=== PATIENT | female | born 1945 | race Caucasian/White ===

== ENCOUNTER 2016-07-07 22:27 | Emergency (ER) | payer MEDICARE ==
[2016-07-07 23:00] LABS: Hematocrit 46 % (35-47); Mean Corpuscular HGB Conc 33 g/dl (31-36); Mean Corpuscular Hemoglobin 32 pg (27-31); Mean Corpuscular Volume 99 fL (80-97); Mean Platelet Volume 9 um3 (7.4-10.4); Red Blood Count 4.65 10^6/ul (4.0-5.4); Red Cell Distribution Width 17 % (10.5-15)
[2016-07-07 23:12] LABS: ALT 87 U/L (7-52); AST 144 U/L (13-39); Albumin 3.8 g/dL (3.2-5.2); Alkaline Phosphatase 81 U/L (34-104); Anion Gap 8 mmol/L (2-11); BUN/Creatinine Ratio 13.4 (8-20); Blood Urea Nitrogen 9 mg/dL (6-24); CO2 Carbon Dioxide 24 mmol/L (22-32); Calcium 8.6 mg/dL (8.6-10.3); Chloride 105 mmol/L (101-111); EGFR African American 111.9 (>60); Glucose 114 mg/dL (70-100); Potassium 3.6 mmol/L (3.5-5.0); Sodium 137 mmol/L (133-145); Total Protein 6.8 g/dL (6.4-8.9)
[2016-07-07 23:29] LABS: Urine Bacteria Absent (Absent); Urine Bilirubin Negative (Negative); Urine Glucose Negative (Negative); Urine Nitrite Negative (Negative)
[2016-07-07 23:36] LABS: Acetaminophen < 15 mcg/mL; Alcohol 393 mg/dL (<10); Salicylate < 2.50 mg/dL (<30)
[2016-07-07 23:40] LABS: Benzodiazepine Urine Screen None Detected (None Detect)
[2016-07-07 23:45] LABS: TSH (Thyroid Stimulating Horm) 5.68 mcIU/mL (0.34-5.60)
[2016-07-07] MEDS ORDERED: LORazepam INJ* 2 MG/ML 1 ML VIAL IV ONE (23:47)
[2016-07-07] MEDS ORDERED: LORazepam INJ* 2 MG/ML 1 ML VIAL ONE (23:49)
--- NOTE | 2016-07-08 00:45 | ED ---
I, Zoran Valentino, scribed for Christian Limon MD on 07/07/16 at 2236 . Substance Abuse/Use - HPI Summary HPI Summary: Pt is a 71 y/o female BIBA as a 914 that presents to the ED c/o SI and EtOH intoxication. Pt repeatedly stated "I don't wanna be here! I can't hardly stand it." and that her sent her here. Pt also stated "My calls me a drunk, which I do drink too much. I am a hot mess. I can't stand it. I need help. I can't stand it." Per nursing note, pt states her hates her, shouting "all I want to do is , my calls me a drunk for a few years and it pisses me off, I am here because I want to ". [facility] and parking lot supervisor stated pt's called 911 after pt made suicidal statements at home. Pt labile, tearful and states she has been drinking alcohol this night and every night, 1/2 liter vodka on this particular evening. Hx: alcohol abuse, depression, HTN. - History Of Current Complaint Stated Complaint: 941 Time Seen by Provider: 07/07/16 22:30 Hx Obtained From: Patient ?: No Onset/Duration of Drug/ETOH Abuse: Hours Ingestion History: Type/Name Of Drug - alcohol, Amount Ingested - 1/2 L of liquor Timing Of Abuse: Daily Severity Initially: Moderate Severity Currently: Moderate Character: Depressed Aggravating Factor(s): Other - alcohol Alleviating Factor(s): Nothing Associated Signs And Symptoms: Intentional Ingestion Related Hx: Drug/Alcohol Last Used @ - tonight, Suicidal: Thoughts - Allergies/Home Medications Allergies/Adverse Reactions: Allergies Allergy/AdvReac Type Severity Reaction Status Date / Time No Known Allergies Allergy Verified 09/14/15 10:53 PMH/Surg Hx/FS Hx/Imm Hx Endocrine/Hematology History: Denies: Hx Anticoagulant Therapy, Hx Diabetes, Hx Thyroid Disease Cardiovascular History: Reports: Hx Hypertension Denies: Hx Pacemaker/ICD Respiratory History: Denies: Hx Asthma, Hx Chronic Obstructive Pulmonary Disease (COPD) History: Denies: Hx Renal Disease Neurological History: Denies: Hx Dementia, Hx Seizures Psychiatric History: Reports: Hx Depression - reports she feels depressed, Hx Substance Abuse - alcohol abuse last 4-5 years Denies: Hx Eating Disorder Infectious Disease History: Denies: Hx Hepatitis, Hx Human Immunodeficiency Virus (HIV) - Family History Known Family History: Positive: Other - Alcoholism - Social History Alcohol Use: Daily Alcohol Amount: 1/2 bottle of vodka/day Hx Substance Use: No Substance Use Type: Reports: None Hx Tobacco Use: No Smoking Status (MU): Never Smoked Tobacco Review of Systems Constitutional: Negative Eyes: Negative ENT: Negative Cardiovascular: Negative Respiratory: Negative Gastrointestinal: Negative Genitourinary: Negative Musculoskeletal: Negative Skin: Negative Neurological: Negative Psychological: Other - alcohol intoxication Positive: Depressed - w/ SI All Other Systems Reviewed And Are Negative: Yes Physical Exam Triage Information Reviewed: Yes Vital Signs On Initial Exam: Initial Vitals Temp Pulse Resp BP Pulse Ox 98.7 F 71 17 155/95 93 07/07/16 22:30 07/07/16 22:30 07/07/16 22:30 07/07/16 22:30 07/07/16 22:30 Vital Signs Reviewed: Yes Appearance: Positive: Well-Appearing, No Pain Distress Skin: Positive: Warm, Skin Color Reflects Adequate Perfusion, Dry Head/Face: Positive: Normal Head/Face Inspection Eyes: Positive: Normal ENT: Positive: Normal ENT inspection Neck: Positive: Supple, Nontender Respiratory/Lung Sounds: Positive: Clear to Auscultation, Breath Sounds Present Cardiovascular: Positive: RRR Abdomen Description: Positive: Nontender, Soft Bowel Sounds: Positive: Present Musculoskeletal: Positive: Normal Neurological: Positive: Normal Psychiatric: Positive: Depressed - w/ SI, Other - EtOH intoxication Diagnostics - Vital Signs Vital Signs Temp Pulse Resp BP Pulse Ox 07/07/16 23:52 24 07/07/16 22:30 98.7 F 71 17 155/95 93 - Laboratory Lab Results: Lab Results 07/07/16 07/07/16 07/07/16 Range/Units 22:50 22:50 23:08 WBC 7.0 (3.5-10.8) 10^3/ul RBC 4.65 (4.0-5.4) 10^6/ul Hgb 15.0 (12.0-16.0) g/dl Hct 46 (35-47) % MCV 99 H (80-97) fL MCH 32 H (27-31) pg MCHC 33 (31-36) g/dl RDW 17 H (10.5-15) % Plt Count 111 L (150-450) 10^3/ul MPV 9 (7.4-10.4) um3 Neut % (Auto) 33.4 L (38-83) % Lymph % (Auto) 48.0 H (25-47) % [place] % (Auto) 14.4 H (1-9) % Eos % (Auto) 3.1 (0-6) % Baso % (Auto) 1.1 (0-2) % Absolute Neuts (auto) 2.4 (1.5-7.7) 10^3/ul Absolute Lymphs (auto) 3.4 (1.0-4.8) 10^3/ul Absolute Monos (auto) 1.0 H (0-0.8) 10^3/ul Absolute Eos (auto) 0.2 (0-0.6) 10^3/ul Absolute Basos (auto) 0.1 (0-0.2) 10^3/ul Absolute Nucleated RBC 0.01 10^3/ul Nucleated RBC % 0.1 Sodium 137 (133-145) mmol/L Potassium 3.6 (3.5-5.0) mmol/L Chloride 105 (101-111) mmol/L Carbon Dioxide 24 (22-32) mmol/L Anion Gap 8 (2-11) mmol/L BUN 9 (6-24) mg/dL Creatinine 0.67 (0.51-0.95) mg/dL Est GFR ( Amer) 111.9 (>60) Est GFR (Non-Af Amer) 87.0 (>60) BUN/Creatinine Ratio 13.4 (8-20) Glucose 114 H (70-100) mg/dL Calcium 8.6 (8.6-10.3) mg/dL Total Bilirubin 0.50 (0.2-1.0) mg/dL AST 144 H (13-39) U/L ALT 87 H (7-52) U/L Alkaline Phosphatase 81 (34-104) U/L Total Protein 6.8 (6.4-8.9) g/dL Albumin 3.8 (3.2-5.2) g/dL Globulin 3.0 (2-4) g/dL Albumin/Globulin Ratio 1.3 (1-3) TSH 5.68 H (0.34-5.60) mcIU/mL Urine Color Straw Urine Appearance Clear Urine pH 6.0 (5-9) Ur Specific [place] 1.002 L (1.010-1.030) Urine Protein Negative (Negative) Urine Ketones Negative (Negative) Urine Blood 1+ H (Negative) Urine Nitrate Negative (Negative) Urine Bilirubin Negative (Negative) Urine Urobilinogen Negative (Negative) Ur Leukocyte Esterase Trace H (Negative) Urine WBC (Auto) Trace(0-5/hpf) (Absent) Urine RBC (Auto) Trace(0-2/hpf) (Absent) Urine Bacteria Absent (Absent) Urine Glucose Negative (Negative) Salicylates < 2.50 (<30) mg/dL Urine Opiates Screen (None Detect) Acetaminophen < 15 mcg/mL Ur Barbiturates Screen (None Detect) Ur Phencyclidine Scrn (None Detect) Ur Amphetamines Screen (None Detect) U Benzodiazepines Scrn (None Detect) Urine Cocaine Screen (None Detect) U Cannabinoids Screen (None Detect) Serum Alcohol 393 H (<10) mg/dL 07/07/16 Range/Units 23:08 WBC (3.5-10.8) 10^3/ul RBC (4.0-5.4) 10^6/ul Hgb (12.0-16.0) g/dl Hct (35-47) % MCV (80-97) fL MCH (27-31) pg MCHC (31-36) g/dl RDW (10.5-15) % Plt Count (150-450) 10^3/ul MPV (7.4-10.4) um3 Neut % (Auto) (38-83) % Lymph % (Auto) (25-47) % [place] % (Auto) (1-9) % Eos % (Auto) (0-6) % Baso % (Auto) (0-2) % Absolute Neuts (auto) (1.5-7.7) 10^3/ul Absolute Lymphs (auto) (1.0-4.8) 10^3/ul Absolute Monos (auto) (0-0.8) 10^3/ul Absolute Eos (auto) (0-0.6) 10^3/ul Absolute Basos (auto) (0-0.2) 10^3/ul Absolute Nucleated RBC 10^3/ul Nucleated RBC % Sodium (133-145) mmol/L Potassium (3.5-5.0) mmol/L Chloride (101-111) mmol/L Carbon Dioxide (22-32) mmol/L Anion Gap (2-11) mmol/L BUN (6-24) mg/dL Creatinine (0.51-0.95) mg/dL Est GFR ( Amer) (>60) Est GFR (Non-Af Amer) (>60) BUN/Creatinine Ratio (8-20) Glucose (70-100) mg/dL Calcium (8.6-10.3) mg/dL Total Bilirubin (0.2-1.0) mg/dL AST (13-39) U/L ALT (7-52) U/L Alkaline Phosphatase (34-104) U/L Total Protein (6.4-8.9) g/dL Albumin (3.2-5.2) g/dL Globulin (2-4) g/dL Albumin/Globulin Ratio (1-3) TSH (0.34-5.60) mcIU/mL Urine Color Urine Appearance Urine pH (5-9) Ur Specific [place] (1.010-1.030) Urine Protein (Negative) Urine Ketones (Negative) Urine Blood (Negative) Urine Nitrate (Negative) Urine Bilirubin (Negative) Urine Urobilinogen (Negative) Ur Leukocyte Esterase (Negative) Urine WBC (Auto) (Absent) Urine RBC (Auto) (Absent) Urine Bacteria (Absent) Urine Glucose (Negative) Salicylates (<30) mg/dL Urine Opiates Screen None detected (None Detect) Acetaminophen mcg/mL Ur Barbiturates Screen None detected (None Detect) Ur Phencyclidine Scrn None detected (None Detect) Ur Amphetamines Screen None detected (None Detect) U Benzodiazepines Scrn None detected (None Detect) Urine Cocaine Screen None detected (None Detect) U Cannabinoids Screen None detected (None Detect) Serum Alcohol (<10) mg/dL Result Diagrams: 07/07/16 22:50 07/07/16 22:50 Lab Statement: Any lab studies that have been ordered have been reviewed, and results considered in the medical decision making process. Course/Dx - Course Course Of Treatment: Sonia Gonzalez presented 941 and intoxicated. She is convalescing now and will have a MHE when sober. - Diagnoses Provider Diagnoses: Alcohol intoxication, Depression - Physician Notifications Discussed Care Of Patient With: Dr. Vela Time Discussed With Above Provider: 01:00 - change of shift Discharge - Discharge Plan Condition: Stable Disposition: HOME The documentation as recorded by the Chicho cardenas Karl accurately reflects the service I personally performed and the decisions made by me, Christian Limon MD.
--- NOTE | 2016-07-08 07:10 | ED ---
Progress - Results/Orders Results/Orders: STABLE IN ED. MHE PENDING AT SHIFT CHANGE. Course/Dx - Course Course Of Treatment: Sonia Gonzalez presented 941 and intoxicated. She is convalescing now and will have a MHE when sober. - Diagnoses Provider Diagnoses: Alcohol intoxication, Depression - Provider Notifications Discussed Care Of Patient With: Dr. Vela Time Discussed With Above Provider: 01:00 - change of shift
[2016-07-08] MEDS ORDERED: LORazepam TAB(*) 1 MG PO ONE ×3 (12:26→15:47)
--- NOTE | 2016-07-08 14:16 | ED ---
Audelia White Matthew, scribed for Julio Cesar Connelly MD on 07/08/16 at 1402 . Progress - Progress Note Progress Note: The patient is a sign out from Dr. Vela The patient is here for alcohol intoxication and depression. She is pending her MHE. She is c/o of shakiness and has a Hx of withdraw. The patient is in stable condition and will be sign out to Dr. Smith pending MHE. - Results/Orders Results/Orders: STABLE IN ED. MHE PENDING AT SHIFT CHANGE. Course/Dx - Course Course Of Treatment: Sonia Gonzalez presented 941 and intoxicated. She is convalescing now and will have a MHE when sober. - Diagnoses Provider Diagnoses: Alcohol intoxication, Depression - Provider Notifications Discussed Care Of Patient With: Dr. Vela Time Discussed With Above Provider: 01:00 - change of shift The documentation as recorded by the allisonibAudelia avila Matthew accurately reflects the service I personally performed and the decisions made by me, Julio Cesar Connelly MD.
[2016-07-08] MEDS ORDERED: Metoprolol Tartrate TAB* 25 MG PO ONE (15:47)
[2016-07-08] MEDS ORDERED: Hydrochlorothiazide TAB* 25 MG PO SCH (16:00)
[2016-07-08] MEDS ORDERED: Lisinopril TAB* 10 MG PO SCH (16:00)
[2016-07-08 19:07] VITALS: BP 172/76
== END 2016-07-08 18:50 | disposition home or self-care (01) ==
LOC: ED 22:27
DX: F10.129 Alcohol abuse with intoxication, unspecified (principal); F32.9 Major depressive disorder, single episode, unspecified
CPT/HCPCS: 36415; 80053; 80307; 80320; 80329; 81003; 81015; 84443; 85025; 87086; 96374; 99285; A9270-GY; G0480; J2060

== ENCOUNTER 2016-09-05 10:28 | Emergency (ER) | payer MEDICARE ==
[2016-09-05 12:16] LABS: Hematocrit 45 % (35-47); Mean Corpuscular HGB Conc 33 g/dl (31-36); Mean Corpuscular Hemoglobin 31 pg (27-31); Mean Corpuscular Volume 95 fL (80-97); Mean Platelet Volume 10 um3 (7.4-10.4); Red Blood Count 4.78 10^6/ul (4.0-5.4); Red Cell Distribution Width 14 % (10.5-15); White Blood Count 8.1 10^3/ul (3.5-10.8)
[2016-09-05 12:48] LABS: TSH (Thyroid Stimulating Horm) 2.55 mcIU/mL (0.34-5.60)
[2016-09-05 13:00] LABS: Urine Bacteria 1+ (Absent); Urine Bilirubin Negative (Negative); Urine Glucose Negative (Negative); Urine Nitrite Negative (Negative)
[2016-09-05 13:37] LABS: ALT 15 U/L (7-52); AST 28 U/L (13-39); Albumin 4.1 g/dL (3.2-5.2); Alkaline Phosphatase 62 U/L (34-104); Anion Gap 11 mmol/L (2-11); BUN/Creatinine Ratio 14.6 (8-20); Blood Urea Nitrogen 12 mg/dL (6-24); CO2 Carbon Dioxide 26 mmol/L (22-32); Calcium 9.3 mg/dL (8.6-10.3); Chloride 109 mmol/L (101-111); EGFR African American 88.6 (>60); EGFR Non-African American 68.9 (>60); Globulin 3.4 g/dL (2-4); Glucose 105 mg/dL (70-100); Sodium 146 mmol/L (133-145); Total Protein 7.5 g/dL (6.4-8.9)
[2016-09-05 13:38] LABS: Acetaminophen < 15 mcg/mL; Alcohol 265 mg/dL (<10); Salicylate < 2.50 mg/dL (<30)
[2016-09-05 13:40] LABS: Benzodiazepine Urine Screen None Detected (None Detect)
--- NOTE | 2016-09-05 19:56 | ED ---
Audelia White Matthew, scribed for Feliz Blanco MD on 09/05/16 at 1140 . Altered Mental Status - HPI Summary HPI Summary: A 71 y/o female presents to the ED for ETOH and depression. She states that shes an alcoholic and was sober for 3 months before becoming stress by her sons behavior. Because of the stress, she has begun to drink again. Today, the patient states that she verbally fought with her and then began to break objects in distress. The patients called the police who brought her to the hospital. She states that she hates herself and her . She denies any SI. - History Of Current Complaint Chief Complaint: EDSubstanceAbuse Stated Complaint: EOTH 941 Time Seen by Provider: 09/05/16 11:25 Hx Obtained From: Patient Onset/Duration: Still Present Timing: Constant Severity Initially: Mild Severity Currently: Mild Associated Signs And Symptoms: Positive: Negative - Allergies/Home Medications Allergies/Adverse Reactions: Allergies Allergy/AdvReac Type Severity Reaction Status Date / Time No Known Allergies Allergy Verified 09/05/16 10:30 PMH/Surg Hx/FS Hx/Imm Hx Endocrine/Hematology History: Denies: Hx Anticoagulant Therapy, Hx Diabetes, Hx Thyroid Disease Cardiovascular History: Reports: Hx Hypertension Denies: Hx Pacemaker/ICD Respiratory History: Denies: Hx Asthma, Hx Chronic Obstructive Pulmonary Disease (COPD) History: Denies: Hx Renal Disease Neurological History: Denies: Hx Dementia, Hx Seizures Psychiatric History: Reports: Hx Depression - reports she feels depressed, Hx Substance Abuse - alcohol abuse last 4-5 years Denies: Hx Eating Disorder, Hx of Violent Episodes Against Others Infectious Disease History: No Infectious Disease History: Denies: Hx Hepatitis, Hx Human Immunodeficiency Virus (HIV), Traveled Outside the [place] in Last 30 Days - Family History Known Family History: Positive: Other - Alcoholism - Social History Alcohol Use: Daily Alcohol Amount: 1/2 bottle of vodka/day Hx Substance Use: No Substance Use Type: Reports: None Hx Tobacco Use: No Smoking Status (MU): Never Smoked Tobacco Review of Systems Constitutional: Negative Eyes: Negative ENT: Negative Cardiovascular: Negative Respiratory: Negative Gastrointestinal: Negative Genitourinary: Negative Musculoskeletal: Negative Skin: Negative Neurological: Negative Psychological: Other - ETOH, Depressoin All Other Systems Reviewed And Are Negative: Yes Physical Exam - Summary Physical Exam Summary: VITAL SIGNS: Reviewed. GENERAL: Patient is a well developed and nourished female who is lying comfortable in the stretcher. Patient is not in any acute respiratory distress. HEAD AND FACE: No signs of trauma. No ecchymosis, hematomas or skull depressions. No sinus tenderness. EYES: PERRLA, EOMI x 2, No injected conjunctiva, no nystagmus. EARS: Hearing grossly intact. Ear canals and tympanic membranes are within normal limits. MOUTH: Oropharynx within normal limits. NECK: Supple, trachea is midline, no adenopathy, no JVD, no carotid bruit, no c- spine tenderness, neck with full ROM. CHEST: Symmetric, no tenderness at palpation LUNGS: Clear to auscultation bilaterally. No wheezing or crackles. CVS: Regular rate and rhythm, S1 and S2 present, no murmurs or gallops appreciated. ABDOMEN: Soft, non-tender. No signs of distention. No rebound no guarding, and no masses palpated. Bowel sounds are normal. EXTREMITIES: FROM in all major joints, no edema, no cyanosis or clubbing. NEURO: Alert and oriented x 3. No acute neurological deficits. Speech is normal and follows commands. SKIN: Dry and warm Triage Information Reviewed: Yes Vital Signs On Initial Exam: Initial Vitals Temp Pulse Resp BP Pulse Ox 96.2 F 71 18 149/93 100 09/05/16 10:30 09/05/16 10:30 09/05/16 10:30 09/05/16 10:30 09/05/16 10:30 Vital Signs Reviewed: Yes Diagnostics - Vital Signs Vital Signs Temp Pulse Resp BP Pulse Ox 09/05/16 10:30 96.2 F 71 18 149/93 100 - Laboratory Result Diagrams: 09/05/16 11:59 09/05/16 11:59 Lab Statement: Any lab studies that have been ordered have been reviewed, and results considered in the medical decision making process. Altered Mental Statu Course/Dx - Course Assessment/Plan: A 71 y/o female presents to the ED for ETOH and depression. She states that shes an alcoholic and was sober for 3 months before becoming stress by her sons behavior. Because of the stress, she has begun to drink again. Today, the patient states that she verbally fought with her and then began to break objects in distress. The patients called the police who brought her to the hospital. She states that she hates herself and her . She denies any SI. All blood work WNL. except for increased alcohol level. He is medically cleared. He is awaiting for a MHE. Patient is hemodynamically stable and A+O x 3. Dr. Leroy (Psychiatry) evaluated the patient and he recommended to discharge the patient home with f/u of AA. Patient is A+O x 3, she is homdyanmically stable and she is sober. She eating and drinking and she has an steady gate. I discussed all the findings and test results with the patient. Patient was instructed to return to the emergency room immediately if any of the symptoms return or worsens. Plan of care was discussed with the patient and understands and agrees. All questions were answered at patient satisfaction. There were no further complaints or concerns. Lung exam before discharge: CTA B/L. Good air exchange. No wheezing or crackles heard. CVS: S1 and S2 present. No murmurs appreciated. Patient is alert and oriented x 3. Patient is hemodynamically stable. Patient will be discharged home with follow up seeing eye dog trainer in the next 2-3 days - Diagnoses Differential Diagnosis/HQI/PQRI: Other - Alcohol intoxication, Substance abuse Discharge Diagnoses: Alcohol intoxication, Alcohol-induced mood disorder Discharge - Discharge Plan Condition: Stable Disposition: HOME Patient Education Materials: Alcohol Intoxication (ED) Referrals: ALCOHOLICS ANONYMOUS [Outside] - If Needed [facility] [Outside] - If Needed Josh Jameson MD [Primary Care Provider] - The documentation as recorded by the Audelia cardenas Matthew accurately reflects the service I personally performed and the decisions made by me, Feliz Blanco MD.
[2016-09-05 19:57] VITALS: BP 136/84
== END 2016-09-05 20:03 | disposition home or self-care (01) ==
LOC: ED 10:28
DX: F10.94 Alcohol use, unspecified with alcohol-induced mood disorder (principal); F10.129 Alcohol abuse with intoxication, unspecified; Y90.8 Blood alcohol level of 240 mg/100 ml or more
CPT/HCPCS: 36415; 80053; 80307; 80320; 80329; 81003; 81015; 84443; 85025; 87086; 99283; G0480

== ENCOUNTER 2016-09-12 09:25 | Emergency (ER) | payer MEDICARE ==
[2016-09-12] MEDS ORDERED: NS 0.9% 1000 ML* 1,000 ML IV ONE (09:30)
[2016-09-12 10:38] LABS: Hematocrit 46 % (35-47); Hemoglobin 15.4 g/dl (12.0-16.0); Mean Corpuscular HGB Conc 34 g/dl (31-36); Mean Corpuscular Hemoglobin 32 pg (27-31); Mean Corpuscular Volume 94 fL (80-97); Mean Platelet Volume 9 um3 (7.4-10.4); Red Blood Count 4.89 10^6/ul (4.0-5.4); Red Cell Distribution Width 14 % (10.5-15); White Blood Count 6.9 10^3/ul (3.5-10.8)
[2016-09-12 10:40] LABS: Urine Bilirubin Negative (Negative); Urine Glucose Negative (Negative); Urine Nitrite Negative (Negative)
[2016-09-12] MEDS ORDERED: Haloperidol INJ IV/IM* 5 MG/ML AMP IV SLOW PU ONE (10:47)
[2016-09-12] MEDS ORDERED: diPHENhydraMINE IV* 50 MG/ML 1 ml VIAL (BENADRYL) IV ONE (10:48)
[2016-09-12] MEDS ORDERED: LORazepam INJ* 2 MG/ML 1 ML VIAL IV PUSH ONE (10:48)
[2016-09-12 10:52] LABS: ALT 18 U/L (7-52); AST 31 U/L (13-39); Albumin 4.1 g/dL (3.2-5.2); Alkaline Phosphatase 60 U/L (34-104); Anion Gap 8 mmol/L (2-11); BUN/Creatinine Ratio 14.7 (8-20); Blood Urea Nitrogen 10 mg/dL (6-24); CO2 Carbon Dioxide 29 mmol/L (22-32); Calcium 9.1 mg/dL (8.6-10.3); Chloride 106 mmol/L (101-111); EGFR Non-African American 85.5 (>60); Globulin 3.2 g/dL (2-4); Glucose 105 mg/dL (70-100); Potassium 3.5 mmol/L (3.5-5.0); Sodium 143 mmol/L (133-145); Total Protein 7.3 g/dL (6.4-8.9)
[2016-09-12 10:56] LABS: Benzodiazepine Urine Screen None Detected (None Detect)
[2016-09-12 11:22] LABS: Acetaminophen < 15 mcg/mL; Alcohol 286 mg/dL (<10); Salicylate < 2.50 mg/dL (<30)
--- NOTE | 2016-09-12 17:33 | ED ---
Preeti White Janilya, scribed for Nayely Lopez MD on 09/12/16 at 1001 . Substance Abuse/Use - HPI Summary HPI Summary: A 71 y/o female was BIBA 941 to [facility] presenting w/ EtOH intoxication. Pt states that she typically drinks half a bottle of vodka. Pt has PMHx of depression. Pt made statements like "nobody cares about me" and "I just want to ". Pt lives with , and she says the relationship is not great. - History Of Current Complaint Stated Complaint: 941 Time Seen by Provider: 09/12/16 09:28 Hx Obtained From: Patient Ingestion History: Type/Name Of Drug - EtOH, Amount Ingested - unknown Overdose Characteristics: Oral Timing Of Abuse: Daily Severity Initially: Moderate Severity Currently: Moderate Character: Depressed Aggravating Factor(s): Nothing Alleviating Factor(s): Nothing - Allergies/Home Medications Allergies/Adverse Reactions: Allergies Allergy/AdvReac Type Severity Reaction Status Date / Time No Known Allergies Allergy Verified 09/05/16 10:30 PMH/Surg Hx/FS Hx/Imm Hx Previously Healthy: Yes Endocrine/Hematology History: Denies: Hx Anticoagulant Therapy, Hx Diabetes, Hx Thyroid Disease Cardiovascular History: Reports: Hx Hypertension Denies: Hx Pacemaker/ICD Respiratory History: Denies: Hx Asthma, Hx Chronic Obstructive Pulmonary Disease (COPD) History: Denies: Hx Renal Disease Neurological History: Denies: Hx Dementia, Hx Seizures Psychiatric History: Reports: Hx Depression - reports she feels depressed, Hx Substance Abuse - alcohol abuse last 4-5 years Denies: Hx Eating Disorder, Hx of Violent Episodes Against Others Infectious Disease History: Denies: Hx Hepatitis, Hx Human Immunodeficiency Virus (HIV) - Family History Known Family History: Positive: Other - Alcoholism - Social History Lives: With Family Alcohol Use: Daily Alcohol Amount: 1/2 bottle of vodka/day Hx Substance Use: No Substance Use Type: Reports: None Hx Tobacco Use: No Smoking Status (MU): Never Smoked Tobacco Review of Systems Negative: Fever Neurological: Other - intoxicated Positive: Depressed All Other Systems Reviewed And Are Negative: Yes Physical Exam Triage Information Reviewed: Yes Vital Signs On Initial Exam: Vital Signs (72 hours) 09/12/16 09:26 Temperature 97.8 F Pulse Rate 72 Respiratory 16 Rate Blood Pressure 168/87 (mmHg) O2 Sat by Pulse 96 Oximetry Vital Signs Reviewed: Yes Appearance: Positive: Well-Appearing, No Pain Distress Skin: Positive: Warm, Skin Color Reflects Adequate Perfusion, Dry Eyes: Positive: EOMI, GRISEL ENT: Positive: Pharynx normal, TMs normal Neck: Positive: Supple, Nontender Respiratory/Lung Sounds: Positive: Clear to Auscultation, Breath Sounds Present. Negative: Rales, Rhonchi, Wheezes Cardiovascular: Positive: RRR. Negative: Murmur, Rub, Other - no gallops Abdomen Description: Positive: Nontender, Soft. Negative: Distended, Guarding, Other: - no rebound Bowel Sounds: Positive: Present Musculoskeletal: Positive: Strength/ROM Intact. Negative: Edema Left, Edema Right Neurological: Positive: Sensory/Motor Intact, Alert, Oriented to Person Place, Time, CN Intact II-III Psychiatric: Positive: Anxious Diagnostics - Vital Signs Vital Signs Temp Pulse Resp BP Pulse Ox 09/12/16 17:00 56 15 155/69 96 09/12/16 16:30 64 14 158/72 99 09/12/16 16:00 59 17 129/60 95 09/12/16 15:30 56 16 132/69 96 09/12/16 15:00 59 17 113/96 98 09/12/16 14:30 61 15 132/63 99 09/12/16 14:00 58 16 112/59 100 09/12/16 13:30 69 18 138/69 98 09/12/16 13:00 63 18 97/57 99 09/12/16 12:30 61 17 94/54 97 09/12/16 12:00 62 18 126/65 94 09/12/16 11:30 66 7 120/69 99 09/12/16 11:23 66 109/52 92 09/12/16 11:14 14 09/12/16 09:26 97.8 F 72 16 168/87 96 - Laboratory Lab Results: Lab Results 09/12/16 09/12/16 09/12/16 Range/Units 10:22 10:22 10:22 WBC 6.9 (3.5-10.8) 10^3/ul RBC 4.89 (4.0-5.4) 10^6/ul Hgb 15.4 (12.0-16.0) g/dl Hct 46 (35-47) % MCV 94 (80-97) fL MCH 32 H (27-31) pg MCHC 34 (31-36) g/dl RDW 14 (10.5-15) % Plt Count 155 (150-450) 10^3/ul MPV 9 (7.4-10.4) um3 Neut % (Auto) 47.7 (38-83) % Lymph % (Auto) 40.0 (25-47) % Gage % (Auto) 7.3 (1-9) % Eos % (Auto) 4.1 (0-6) % Baso % (Auto) 0.9 (0-2) % Absolute Neuts (auto) 3.3 (1.5-7.7) 10^3/ul Absolute Lymphs (auto) 2.8 (1.0-4.8) 10^3/ul Absolute Monos (auto) 0.5 (0-0.8) 10^3/ul Absolute Eos (auto) 0.3 (0-0.6) 10^3/ul Absolute Basos (auto) 0.1 (0-0.2) 10^3/ul Absolute Nucleated RBC 0 10^3/ul Nucleated RBC % 0 Sodium 143 (133-145) mmol/L Potassium 3.5 (3.5-5.0) mmol/L Chloride 106 (101-111) mmol/L Carbon Dioxide 29 (22-32) mmol/L Anion Gap 8 (2-11) mmol/L BUN 10 (6-24) mg/dL Creatinine 0.68 (0.51-0.95) mg/dL Est GFR ( Amer) 110.0 (>60) Est GFR (Non-Af Amer) 85.5 (>60) BUN/Creatinine Ratio 14.7 (8-20) Glucose 105 H (70-100) mg/dL Calcium 9.1 (8.6-10.3) mg/dL Total Bilirubin 0.80 (0.2-1.0) mg/dL AST 31 (13-39) U/L ALT 18 (7-52) U/L Alkaline Phosphatase 60 (34-104) U/L Total Protein 7.3 (6.4-8.9) g/dL Albumin 4.1 (3.2-5.2) g/dL Globulin 3.2 (2-4) g/dL Albumin/Globulin Ratio 1.3 (1-3) TSH 2.60 (0.34-5.60) mcIU/mL Urine Color Straw Urine Appearance Clear Urine pH 6.0 (5-9) Ur Specific [place] 1.004 L (1.010-1.030) Urine Protein Negative (Negative) Urine Ketones Negative (Negative) Urine Blood Negative (Negative) Urine Nitrate Negative (Negative) Urine Bilirubin Negative (Negative) Urine Urobilinogen Negative (Negative) Ur Leukocyte Esterase Negative (Negative) Urine Glucose Negative (Negative) Salicylates < 2.50 (<30) mg/dL Urine Opiates Screen (None Detect) Acetaminophen < 15 mcg/mL Ur Barbiturates Screen (None Detect) Ur Phencyclidine Scrn (None Detect) Ur Amphetamines Screen (None Detect) U Benzodiazepines Scrn (None Detect) Urine Cocaine Screen (None Detect) U Cannabinoids Screen (None Detect) Serum Alcohol 286 H (<10) mg/dL 09/12/16 Range/Units 10:22 WBC (3.5-10.8) 10^3/ul RBC (4.0-5.4) 10^6/ul Hgb (12.0-16.0) g/dl Hct (35-47) % MCV (80-97) fL MCH (27-31) pg MCHC (31-36) g/dl RDW (10.5-15) % Plt Count (150-450) 10^3/ul MPV (7.4-10.4) um3 Neut % (Auto) (38-83) % Lymph % (Auto) (25-47) % Gage % (Auto) (1-9) % Eos % (Auto) (0-6) % Baso % (Auto) (0-2) % Absolute Neuts (auto) (1.5-7.7) 10^3/ul Absolute Lymphs (auto) (1.0-4.8) 10^3/ul Absolute Monos (auto) (0-0.8) 10^3/ul Absolute Eos (auto) (0-0.6) 10^3/ul Absolute Basos (auto) (0-0.2) 10^3/ul Absolute Nucleated RBC 10^3/ul Nucleated RBC % Sodium (133-145) mmol/L Potassium (3.5-5.0) mmol/L Chloride (101-111) mmol/L Carbon Dioxide (22-32) mmol/L Anion Gap (2-11) mmol/L BUN (6-24) mg/dL Creatinine (0.51-0.95) mg/dL Est GFR ( Amer) (>60) Est GFR (Non-Af Amer) (>60) BUN/Creatinine Ratio (8-20) Glucose (70-100) mg/dL Calcium (8.6-10.3) mg/dL Total Bilirubin (0.2-1.0) mg/dL AST (13-39) U/L ALT (7-52) U/L Alkaline Phosphatase (34-104) U/L Total Protein (6.4-8.9) g/dL Albumin (3.2-5.2) g/dL Globulin (2-4) g/dL Albumin/Globulin Ratio (1-3) TSH (0.34-5.60) mcIU/mL Urine Color Urine Appearance Urine pH (5-9) Ur Specific [place] (1.010-1.030) Urine Protein (Negative) Urine Ketones (Negative) Urine Blood (Negative) Urine Nitrate (Negative) Urine Bilirubin (Negative) Urine Urobilinogen (Negative) Ur Leukocyte Esterase (Negative) Urine Glucose (Negative) Salicylates (<30) mg/dL Urine Opiates Screen None detected (None Detect) Acetaminophen mcg/mL Ur Barbiturates Screen None detected (None Detect) Ur Phencyclidine Scrn None detected (None Detect) Ur Amphetamines Screen None detected (None Detect) U Benzodiazepines Scrn None detected (None Detect) Urine Cocaine Screen None detected (None Detect) U Cannabinoids Screen None detected (None Detect) Serum Alcohol (<10) mg/dL Result Diagrams: 09/12/16 10:22 09/12/16 10:22 Lab Statement: Any lab studies that have been ordered have been reviewed, and results considered in the medical decision making process. Course/Dx - Course Course Of Treatment: 71 yo female with history of alcoholism who arrived with alcohol intoxication asking to and saying that no one loved her. Pt ended up getting very agitated requiring medication, she will be medically cleared for evaluation at 730pm. Pt will be signed out to Dr. Acevedo - Diagnoses Provider Diagnoses: Alcoholism Discharge - Discharge Plan Condition: Stable Disposition: OTHER Discharge Disposition Comment: to be determined by Mental health team The documentation as recorded by the Preeti cardenas Janilya accurately reflects the service I personally performed and the decisions made by me, Nayely Lopez MD.
[2016-09-12] MEDS ORDERED: Metoprolol Tartrate TAB* 25 MG PO ONE (20:21)
[2016-09-12] MEDS ORDERED: cloNIDine TAB* 0.1 MG PO ONE (22:45)
[2016-09-13 01:20] VITALS: BP 176/63
== END 2016-09-13 01:19 | disposition home or self-care (01) ==
LOC: ED 09:25
DX: F10.20 Alcohol dependence, uncomplicated (principal); F32.9 Major depressive disorder, single episode, unspecified; Y90.8 Blood alcohol level of 240 mg/100 ml or more
CPT/HCPCS: 36415; 80053; 80307; 80320; 80329; 81003; 84443; 85025; 96374; 96375; 99285; A9270-GY; G0480; J1200; J1630; J2060

== ENCOUNTER 2016-10-15 11:27 | Inpatient (IN) | payer MEDICARE ==
[2016-10-15 11:59] LABS: Hematocrit 43 % (35-47); Hemoglobin 14.5 g/dl (12.0-16.0); Mean Corpuscular HGB Conc 34 g/dl (31-36); Mean Corpuscular Hemoglobin 33 pg (27-31); Mean Corpuscular Volume 97 fL (80-97); Mean Platelet Volume 9 um3 (7.4-10.4); Red Blood Count 4.43 10^6/ul (4.0-5.4); Red Cell Distribution Width 20 % (10.5-15); White Blood Count 8.1 10^3/ul (3.5-10.8)
[2016-10-15 12:13] LABS: ALT 27 U/L (7-52); AST 43 U/L (13-39); Albumin 4.1 g/dL (3.2-5.2); Alkaline Phosphatase 75 U/L (34-104); Anion Gap 14 mmol/L (2-11); BUN/Creatinine Ratio 22.4 (8-20); Blood Urea Nitrogen 15 mg/dL (6-24); CO2 Carbon Dioxide 21 mmol/L (22-32); Chloride 106 mmol/L (101-111); EGFR African American 111.9 (>60); Globulin 3.2 g/dL (2-4); Glucose 107 mg/dL (70-100); Potassium 3.5 mmol/L (3.5-5.0); Sodium 141 mmol/L (133-145); Total Protein 7.3 g/dL (6.4-8.9)
[2016-10-15 12:31] LABS: Acetaminophen < 15 mcg/mL; Salicylate < 2.50 mg/dL (<30)
[2016-10-15 12:44] LABS: Alcohol 448 mg/dL (<10)
[2016-10-15 14:01] LABS: TSH (Thyroid Stimulating Horm) 2.32 mcIU/mL (0.34-5.60)
[2016-10-15] MEDS ORDERED: Ondansetron INJ* 2 MG/ML VIAL IV PRN (16:17)
[2016-10-15 16:50] LABS: Magnesium 1.9 mg/dL (1.9-2.7)
[2016-10-15] MEDS ORDERED: Thiamine IV* 100 MG, Folic Acid IV* 1 MG, Multiple Vitamin IV ADULT* 10 ML in NS 0.9% 1... IV ONE (17:00)
[2016-10-15] MEDS: Enoxaparin(*) 40 MG/0.4 ML SYR SUBCUT SCH (17:32)
[2016-10-15] MEDS: Omeprazole CAP* 20 MG PO SCH (17:32)
--- NOTE | 2016-10-15 19:43 | HP ---
ATTENDING PHYSICIAN ADDENDUM NOW INCLUDED ON THIS REPORT MEDICINE HISTORY AND PHYSICAL: DATE OF ADMISSION: 10/15/16 PROVIDER: Terra Dos Santos NP ATTENDING PHYSICIAN: Dr. Sofía Aleman *(dictated by Terra Dos Santos NP). PRIMARY CARE PROVIDER: Dr. Josh Jameson. CHIEF COMPLAINT: Alcohol intoxication. HISTORY OF PRESENT ILLNESS: Ms. Gonzalez is a 71-year-old female, who was brought in to the emergency department by EMS under 9.41 order. The patient was noted to be intoxicated and was verbalizing suicidal ideation upon arrival. Per the nurse who cared for the patient, the patient reported to her that she "drinks too much" and that she was upset because her decided to go to [place] to visit his brother. The patient then decided to call the police on her for this. When I spoke with the patient, she did not recall any of this and stated that she came in on her own because she is an alcoholic and does admit to being depressed. I did ask the patient multiple times if she had any other concerns or complaints and she continued to state that she was an alcoholic and depressed, but then asked to go home. She denies any recent complaints including chest pain, shortness of breath, abdominal pain, nausea, vomiting, or diarrhea. She states that she has been well recently. She does admit to being upset that her is not here. Otherwise, she seems confused as to why she is actually here and does not seem to retain understanding of the situation. Of note, the patient's blood alcohol level was noted to be 448 upon arrival. PAST MEDICAL HISTORY: She reports a history of hypertension and depression. The patient also endorses history of alcohol abuse. HOME MEDICATIONS: 1. Lorazepam 1 mg t.i.d. p.r.n. 2. Aspirin 81 mg daily. 3. Folic acid 1 mg daily. 4. Potassium chloride 20 mEq daily. 5. Metoprolol tartrate 25 mg b.i.d. 6. Magnesium oxide 400 mg daily. 7. Sertraline 25 mg daily. 8. Omeprazole 20 mg b.i.d. 9. Multivitamin 1 tab daily. ALLERGIES: No known allergies. FAMILY HISTORY: Unable to obtain from the patient. She does state that alcoholism runs in her family in both her parents as well as her siblings and her son. From the records, I see that she also in the past has reported her father who from cancer as well as a brother who had an CO at age 52 and a sister who had CO at age 70, who are both . SOCIAL HISTORY: She is . She lives with her , Alex, who is also her emergency contact and health-care proxy. She has 4 children. She denies tobacco use or illicit drug use. She does state that she drinks daily. She would not quantify the amount, but states that she drinks "quite a few drinks a day." She is not currently working. She is retired. REVIEW OF SYSTEMS: Difficult to obtain secondary to confusion and intoxication. All pertinent positives and negatives that I was able to obtain are included in the HPI. PHYSICAL EXAMINATION GENERAL: Ms. Gonzalez is a 71-year-old female, who is drowsy, but otherwise well appearing, does not appear to be in any acute distress. VITAL SIGNS: Temperature 98.4, respiratory rate 14, pulse rate 72, blood pressure 158/79, and O2 saturation is 97% on room air. HEENT: Head is atraumatic, normocephalic. Face is symmetrical. Pupils are equal, round, and reactive to light. External ears and nose are normal. Oral mucosa appears moist. NECK: Supple. No lymphadenopathy appreciated. RESPIRATORY: Lungs are clear to auscultation. CARDIAC: S1, S2 heart sounds. Regular rate and rhythm. No murmurs, rubs, or gallops. ABDOMEN: Soft, nontender, nondistended. Bowel sounds are present times all 4 quadrants. MUSCULOSKELETAL: No clubbing or cyanosis noted. Patient appears to have full ROM. NEUROLOGIC: The patient moves all extremities. Sensation is intact to light touch. Cranial nerves II through XII appear grossly intact. PSYCH: She is mildly drowsy, oriented to self and place. She is disoriented to time and situation. She is tearful but cooperative and follows commands. SKIN: Limited examination, but appears grossly intact. DIAGNOSTIC STUDIES/LAB DATA: CBC: WBC 8.1, hemoglobin 14.5, hematocrit 43, platelet count 100. CMP: Sodium 141, potassium 3.5, chloride 106, BUN 15, creatinine 0.67, glucose 107, calcium 9.0, magnesium 1.9. Total bilirubin 0.9, AST 43, ALT 27, alk phos 75. Albumin of 4.1. TSH 2.32. Toxicology shows a serum alcohol level of 448. Old medical records were reviewed. ASSESSMENT AND PLAN: Ms. Gonzalez is a 71-year-old female with a past medical history significant for chronic alcohol abuse, hypertension, and depression, who presents today with acute alcohol intoxication and concern for verbalized suicidal ideation. We will admit her on observation to the medicine floor. Plan is as follows: 1. Alcohol intoxication: We will monitor the patient and provide supportive care with IV fluids. The patient will have a repeat alcohol level. I anticipate that she will be medically cleared sometime after midnight for her mental health evaluation. The patient was made aware that this will most likely take place tomorrow, hopefully in the morning. In the meantime, we will give her banana bag and provide care with p.r.n. antiemetics. 2. Suicidal ideation: The patient was brought in under 9.41 and will require mental health evaluation. Mental health unit has been made aware. We will re- draw her serum alcohol level and continue supportive care. In the meantime, she will have a one-to-one sitter. 3. Hypertension: Continue home medications of metoprolol. 4. Depression: Continue home Zoloft. 5. DVT prophylaxis: She is ordered subcu Lovenox. 6. Code status: She is a full code. 7. Disposition: Admit to Medicine for observation status. The patient will receive mental health evaluation with anticipated discharge home once medically cleared by Psych. TIME SPENT: Time spent on this admission was approximately 60 minutes, more than half that time was spent [id number] with the patient obtaining history and physical, performing physical examination, and reviewing the plan of care. Plan of care was also reviewed with my attending, Dr. Aleman, who is in agreement. TERRA DOS SANTOS NP ADDENDUM: Ms. Gonzalez is a 71-year-old female with a history of dyslipidemia and hypertension who presented to the hospital intoxicated, expressing suicidal ideations. The patient's alcohol level was over 400. She is going to be admitted to our service and once she gela up, she is going to be evaluated by psychiatrist. For further details of the patient's presentation and plan, please see history and physical dictated by Terra Dos Santos NP, on 10/15/16 with which I agree. SOFÍA ALEMAN MD CC: Dr. Jameson* [id number]/[facility] #: [id number] [id number]/[facility] #: [id number] CLYDE
[2016-10-15] MEDS: Metoprolol Tartrate TAB* 25 MG PO SCH (20:09)
[2016-10-15] MEDS: LORazepam TAB(*) 1 MG PO PRN (20:55)
--- NOTE | 2016-10-15 21:15 | HP ---
HISTORY AND PHYSICAL:* ADDENDUM: Ms. Gonzalez is a 71-year-old female with a history of dyslipidemia and hypertension who presented to the hospital intoxicated expressing suicidal ideations. The patient's alcohol level was over 400. She is going to be admitted to our service and once she gela up, she is going to be evaluated by psychiatrist. For further details of the patient's presentation and plan, please see history and physical dictated by Ana Ferrell NP, on 10/15/16 with which I agree. [id number]/[facility] #: [id number] [facility]
--- NOTE | 2016-10-15 22:10 | ED ---
Jewel White Aidan, scribed for Christian Limon MD on 10/15/16 at 1526 . Psychiatric Complaint - HPI Summary HPI Summary: 71 y/o female presents to the ED via EMS on . intoxicated and verbalizing suicidal ideation. According to the nurse, the patient claimed to have drank too much and that she was very aggravated at her for going to [place] to visit his brother. As a result, she called the police on her . While in the ED, she asked if she was in the hospital and believed that she came on her own accord. Her SALOMÓN was 0.448. - History Of Current Complaint Chief Complaint: EDMentalHealth Time Seen by Provider: 10/15/16 13:24 Hx Obtained From: Other: - nurse Hx From Patient Unobtainable Due To: Altered Mental Status - Pt was unable to give a full Hx due to her intoxication and confusion Hx Last Menstrual Period: unknown Onset/Duration: Sudden Onset, Lasting Hours, Still Present Timing: Intermittent Episode Lasting Severity Initially: Moderate Severity Currently: Moderate Character: Anxious Aggravating Factor(s): Alcohol Use, Other - left to visit her brother, which seemed to be traumatic for the Pt Alleviating Factor(s): Other - unknown Associated Signs And Symptoms: Positive: Confused Related History: Positive For: Admissions Related To Substance Abuse - Pt has a history of admissions due to alcohol intoxication, according to the nurse Has Suicidal: Reports: Thoughts - verbalized SI Has Homicidal: Denies: Thoughts, With A Plan, Demonstrates Gesture, Has Prior Attempt(s) Recent Stressor(s): Her visited his brother in [place], which aggravated Pt Ingestion History: Type/Name Of Drug - alcohol, Amount Ingested - unknown - Risk Factor(s) Completed Suicide Risk Factors: White Gambian - Allergies/Home Medications Allergies/Adverse Reactions: Allergies Allergy/AdvReac Type Severity Reaction Status Date / Time No Known Allergies Allergy Verified 09/05/16 10:30 Home Medications: Home Medications LORazepam TAB(*) [Ativan 1 MG TAB (*)] 1 mg PO TID PRN 10/15/16 [History Confirmed 10/15/16] Potassium Chloride Microencaps [Klor-Con M20] 20 meq PO DAILY 10/15/16 [History Confirmed 10/15/16] PMH/Surg Hx/FS Hx/Imm Hx Endocrine/Hematology History: Denies: Hx Anticoagulant Therapy, Hx Diabetes, Hx Thyroid Disease Cardiovascular History: Reports: Hx Hypertension Denies: Hx Pacemaker/ICD Respiratory History: Denies: Hx Asthma, Hx Chronic Obstructive Pulmonary Disease (COPD) History: Denies: Hx Renal Disease Neurological History: Denies: Hx Dementia, Hx Seizures Psychiatric History: Reports: Hx Depression - reports she feels depressed, Hx Substance Abuse - alcohol abuse last 4-5 years Denies: Hx Eating Disorder, Hx of Violent Episodes Against Others Infectious Disease History: No Infectious Disease History: Denies: Hx Hepatitis, Hx Human Immunodeficiency Virus (HIV), Traveled Outside the [place] in Last 30 Days - Family History Known Family History: Positive: Other - Alcoholism - Social History Occupation: Retired Lives: With Family Alcohol Use: Daily Alcohol Amount: 1/2 bottle of vodka/day Hx Substance Use: No Substance Use Type: Reports: None Hx Tobacco Use: No Smoking Status (MU): Never Smoked Tobacco Review of Systems Constitutional: Negative Eyes: Negative ENT: Negative Cardiovascular: Negative Respiratory: Negative Gastrointestinal: Negative Genitourinary: Negative Musculoskeletal: Negative Skin: Negative Neurological: Other - alcohol intoxication Psychological: Other - confused Positive: Anxious All Other Systems Reviewed And Are Negative: Yes Physical Exam Triage Information Reviewed: Yes Vital Signs On Initial Exam: Initial Vitals Temp Pulse Resp BP Pulse Ox 98.2 F 81 16 161/75 95 10/15/16 12:00 10/15/16 12:00 10/15/16 12:00 10/15/16 12:00 10/15/16 12:00 Vital Signs Reviewed: Yes Appearance: Positive: Well-Appearing, No Pain Distress Skin: Positive: Warm, Skin Color Reflects Adequate Perfusion, Dry Head/Face: Positive: Normal Head/Face Inspection Eyes: Positive: Normal ENT: Positive: Normal ENT inspection Neck: Positive: Supple, Nontender Respiratory/Lung Sounds: Positive: Clear to Auscultation, Breath Sounds Present Cardiovascular: Positive: RRR Abdomen Description: Positive: Nontender, Soft Musculoskeletal: Positive: Normal Neurological: Positive: Sensory/Motor Intact, CN Intact II-III, Reflexes Intact. Negative: Alert, Oriented to Person Place, Time - intoxicated, she was unaware of the fact that she was in the hospital prior to asking Psychiatric: Positive: Anxious, Other - confused - Prasanth Coma Scale Coma Scale Total: 15 Diagnostics - Vital Signs Vital Signs Temp Pulse Resp BP Pulse Ox 10/15/16 14:36 98.0 F 64 14 133/69 97 10/15/16 12:00 98.2 F 81 16 161/75 95 - Laboratory Lab Results: Lab Results 10/15/16 10/15/16 Range/Units 11:50 11:50 WBC 8.1 (3.5-10.8) 10^3/ul RBC 4.43 (4.0-5.4) 10^6/ul Hgb 14.5 (12.0-16.0) g/dl Hct 43 (35-47) % MCV 97 (80-97) fL MCH 33 H (27-31) pg MCHC 34 (31-36) g/dl RDW 20 H (10.5-15) % Plt Count 100 L (150-450) 10^3/ul MPV 9 (7.4-10.4) um3 Neut % (Auto) 40.2 (38-83) % Lymph % (Auto) 45.3 (25-47) % [place] % (Auto) 9.8 H (1-9) % Eos % (Auto) 3.5 (0-6) % Baso % (Auto) 1.2 (0-2) % Absolute Neuts (auto) 3.3 (1.5-7.7) 10^3/ul Absolute Lymphs (auto) 3.7 (1.0-4.8) 10^3/ul Absolute Monos (auto) 0.8 (0-0.8) 10^3/ul Absolute Eos (auto) 0.3 (0-0.6) 10^3/ul Absolute Basos (auto) 0.1 (0-0.2) 10^3/ul Absolute Nucleated RBC 0.01 10^3/ul Nucleated RBC % 0.1 Sodium 141 (133-145) mmol/L Potassium 3.5 (3.5-5.0) mmol/L Chloride 106 (101-111) mmol/L Carbon Dioxide 21 L (22-32) mmol/L Anion Gap 14 H (2-11) mmol/L BUN 15 (6-24) mg/dL Creatinine 0.67 (0.51-0.95) mg/dL Est GFR ( Amer) 111.9 (>60) Est GFR (Non-Af Amer) 87.0 (>60) BUN/Creatinine Ratio 22.4 H (8-20) Glucose 107 H (70-100) mg/dL Calcium 9.0 (8.6-10.3) mg/dL Total Bilirubin 0.90 (0.2-1.0) mg/dL AST 43 H (13-39) U/L ALT 27 (7-52) U/L Alkaline Phosphatase 75 (34-104) U/L Total Protein 7.3 (6.4-8.9) g/dL Albumin 4.1 (3.2-5.2) g/dL Globulin 3.2 (2-4) g/dL Albumin/Globulin Ratio 1.3 (1-3) TSH 2.32 (0.34-5.60) mcIU/mL Salicylates < 2.50 (<30) mg/dL Acetaminophen < 15 mcg/mL Serum Alcohol 448 H* (<10) mg/dL Result Diagrams: 10/15/16 11:50 10/15/16 11:50 Lab Statement: Any lab studies that have been ordered have been reviewed, and results considered in the medical decision making process. Course/Dx - Course Course Of Treatment: 71 y/o female presents confused and intoxicated with a SALOMÓN of 0.448. She verbalized SI, according to the nurse. This is not her first hospitalization due to alcohol. - Differential Dx/Clinical Impression Provider Diagnosis: Alcohol intoxication, Suicidal ideations Discharge - Discharge Plan Condition: Stable Disposition: ADMITTED TO [facility] documentation as recorded by the Jewel cardenas Aidan accurately reflects the service I personally performed and the decisions made by , Christian Limon MD.
[2016-10-16 00:58] LABS: Urine Bacteria 1+ (Absent); Urine Bilirubin Negative (Negative); Urine Glucose Negative (Negative); Urine Nitrite Negative (Negative)
[2016-10-16 01:04] LABS: Benzodiazepine Urine Screen None Detected (None Detect)
[2016-10-16] MEDS: LORazepam TAB(*) 1 MG PO PRN (04:47)
--- NOTE | 2016-10-16 07:30 | PN ---
Subjective Date of Service: 10/16/16 Interval History: Ms. Gonzalez reports having some reflux this morning. She is tremulous but states that this happens at home, and she usually takes Ativan for this. Denies CP, SOB , abd pain, n/v. She is cooperative and motivated to "do what she needs to go home." 1:[address] Family History: Unchanged from Admission Social History: Unchanged from Admission Past Medical History: Unchanged from Admission Objective Active Medications: Acetaminophen (Tylenol Tab*) 650 mg PO Q4H PRN PRN Reason: FEVER/PAIN Aspirin (Aspirin Low Dose Tab*) 81 mg PO DAILY [facility] Enoxaparin Sodium (Lovenox(*)) 40 mg SUBCUT Q24H [facility] Last Admin: 10/15/16 17:32 Dose: 40 mg Folic Acid (Folvite Tab*) 1 mg PO DAILY [facility] Lorazepam (Ativan Tab(*)) 1 mg PO TID PRN PRN Reason: ANXIETY Last Admin: 10/16/16 04:47 Dose: 1 mg Magnesium Oxide (Magox 400 Tab*) 400 mg PO DAILY [facility] Metoprolol Tartrate (Lopressor Tab*) 25 mg PO BID [facility] Last Admin: 10/15/16 20:09 Dose: 25 mg Multivitamins/Minerals (Theragran/Minerals Tab*) 1 tab PO DAILY [facility] Omeprazole (Prilosec Cap*) 20 mg PO BID AC [facility] Last Admin: 10/15/16 17:32 Dose: 20 mg Ondansetron HCl (Zofran Inj*) 4 mg IV Q6H PRN PRN Reason: NAUSEA Potassium Chloride (Klor Con Er Tab*) 20 meq PO DAILY [facility] Sertraline HCl (Zoloft*) 25 mg PO DAILY [facility] Vital Signs 10/15/16 10/15/16 10/15/16 16:04 19:53 20:55 Temperature 98.4 F 97.9 F Pulse Rate 72 77 Respiratory 14 18 18 Rate Blood Pressure 158/79 144/77 (mmHg) O2 Sat by Pulse 95 94 Oximetry 10/15/16 10/15/16 10/16/16 22:55 23:01 03:28 Temperature 98.4 F 98.1 F Pulse Rate 68 68 Respiratory 18 20 16 Rate Blood Pressure 165/77 171/71 (mmHg) O2 Sat by Pulse 92 95 Oximetry 10/16/16 10/16/16 03:37 04:47 Temperature Pulse Rate 71 Respiratory 18 Rate Blood Pressure 161/69 (mmHg) O2 Sat by Pulse Oximetry Oxygen Devices in Use Now: None Appearance: Tearful female patient, sitting up in bed, mild tremors noted. She is alert, cooperative and responding appropriately. Eyes: PERRLA Ears/Nose/Mouth/Throat: Mucous Membranes Moist Neck: NL Appearance and Movements; NL JVP Respiratory: Symmetrical Chest Expansion and Respiratory Effort, Clear to Auscultation Cardiovascular: NL Sounds; No Murmurs; No JVD, RRR Abdominal: NL Sounds; No Tenderness; No Distention Extremities: No Edema Skin: No Rash or Ulcers Neurological: Alert and Oriented x 3, NL Muscle Strength and Tone Lines/Tubes/Other Access: Clean, Dry and Intact Peripheral IV Nutrition: Taking PO's Result Diagrams: 10/15/16 11:50 10/15/16 11:50 Additional Lab and Data: Lab Results 10/15/16 10/15/16 Range/Units 11:50 11:50 WBC 8.1 (3.5-10.8) 10^3/ul RBC 4.43 (4.0-5.4) 10^6/ul Hgb 14.5 (12.0-16.0) g/dl Hct 43 (35-47) % MCV 97 (80-97) fL MCH 33 H (27-31) pg MCHC 34 (31-36) g/dl RDW 20 H (10.5-15) % Plt Count 100 L (150-450) 10^3/ul MPV 9 (7.4-10.4) um3 Neut % (Auto) 40.2 (38-83) % Lymph % (Auto) 45.3 (25-47) % [place] % (Auto) 9.8 H (1-9) % Eos % (Auto) 3.5 (0-6) % Baso % (Auto) 1.2 (0-2) % Absolute Neuts (auto) 3.3 (1.5-7.7) 10^3/ul Absolute Lymphs (auto) 3.7 (1.0-4.8) 10^3/ul Absolute Monos (auto) 0.8 (0-0.8) 10^3/ul Absolute Eos (auto) 0.3 (0-0.6) 10^3/ul Absolute Basos (auto) 0.1 (0-0.2) 10^3/ul Absolute Nucleated RBC 0.01 10^3/ul Nucleated RBC % 0.1 Sodium 141 (133-145) mmol/L Potassium 3.5 (3.5-5.0) mmol/L Chloride 106 (101-111) mmol/L Carbon Dioxide 21 L (22-32) mmol/L Anion Gap 14 H (2-11) mmol/L BUN 15 (6-24) mg/dL Creatinine 0.67 (0.51-0.95) mg/dL Est GFR ( Amer) 111.9 (>60) Est GFR (Non-Af Amer) 87.0 (>60) BUN/Creatinine Ratio 22.4 H (8-20) Glucose 107 H (70-100) mg/dL Calcium 9.0 (8.6-10.3) mg/dL Total Bilirubin 0.90 (0.2-1.0) mg/dL AST 43 H (13-39) U/L ALT 27 (7-52) U/L Alkaline Phosphatase 75 (34-104) U/L Total Protein 7.3 (6.4-8.9) g/dL Albumin 4.1 (3.2-5.2) g/dL Globulin 3.2 (2-4) g/dL Albumin/Globulin Ratio 1.3 (1-3) TSH 2.32 (0.34-5.60) mcIU/mL Salicylates < 2.50 (<30) mg/dL Acetaminophen < 15 mcg/mL Serum Alcohol 448 H* (<10) mg/dL Assess/Plan/Problems-Billing Assessment: Ms. Gonzalez is a 71 yo female with a PMH significant for depression, HTN, and alcohol abuse who was brought in on a 9.41 on 10/15/16 with concern for suicidal ideation. - Patient Problems (1) Alcohol intoxication Comment: Patient admitted for observation and resolution of blood alcohol level in order to have mental health evaluation. Patient has received [employer] and supportive care. Patient reports longstanding history of alcoholism. Will institute [facility] protocol while awaiting MHE to monitor for active withdrawal. (2) Hypertension Code(s): I10 - ESSENTIAL (PRIMARY) HYPERTENSION Comment: Hypertensive Continue home metoprolol. Will add amlodipine if necessary PRN hydralazine (3) DVT prophylaxis Code(s): [id number] - Comment: SQ Lovenox Status and Disposition: OBV admit. Mental health eval to determine dispo.
[2016-10-16] MEDS: Magnesium Oxide TAB* 400 MG PO SCH (07:49)
[2016-10-16] MEDS: Folic Acid TAB* 1 MG PO SCH (07:49)
[2016-10-16] MEDS: Potassium Chlor TAB* 20 MEQ TAB.ER PO SCH (07:49)
[2016-10-16] MEDS: Aspirin Low Dose CHEW TAB* 81 MG PO SCH (07:49)
[2016-10-16] MEDS: Metoprolol Tartrate TAB* 25 MG PO SCH ×2 (07:49→19:59)
[2016-10-16] MEDS: Multivitamins/Minerals TAB PO SCH (07:49)
[2016-10-16] MEDS: Sertraline* 25 MG TAB PO SCH (07:49)
[2016-10-16] MEDS: Omeprazole CAP* 20 MG PO SCH ×2 (07:50→16:38)
[2016-10-16] MEDS: amLODIPine TAB* 5 MG PO SCH (08:38)
[2016-10-16] MEDS: hydrALAZINE IV* 20 MG/ML VIAL IV SLOW PU PRN ×2 (08:38→19:59)
[2016-10-16] MEDS: Thiamine TAB* 100 MG TAB PO SCH (08:39)
[2016-10-16] MEDS: LORazepam TAB(*) 1 MG PO SCH ×3 (13:10→19:59)
[2016-10-16] MEDS: Acetaminophen TAB* 325 MG PO PRN (13:10)
[2016-10-16] MEDS: Enoxaparin(*) 40 MG/0.4 ML SYR SUBCUT SCH (16:38)
[2016-10-16] MEDS ORDERED: amLODIPine TAB* 5 MG PO ONE (17:12)
[2016-10-16] MEDS: chlordiazePOXIDE CAP* 25 MG PO SCH ×2 (17:34→19:58)
[2016-10-17] MEDS: LORazepam TAB(*) 1 MG PO SCH (04:16)
[2016-10-17] MEDS: hydrALAZINE IV* 20 MG/ML VIAL IV SLOW PU PRN (04:16)
[2016-10-17] MEDS: Omeprazole CAP* 20 MG PO SCH ×2 (07:21→16:00)
[2016-10-17] MEDS: Multivitamins/Minerals TAB PO SCH (07:21)
[2016-10-17] MEDS: Aspirin Low Dose CHEW TAB* 81 MG PO SCH (07:21)
[2016-10-17] MEDS: Thiamine TAB* 100 MG TAB PO SCH (07:22)
[2016-10-17] MEDS: Potassium Chlor TAB* 20 MEQ TAB.ER PO SCH (07:22)
[2016-10-17] MEDS: chlordiazePOXIDE CAP* 25 MG PO SCH ×3 (07:22→19:44)
[2016-10-17] MEDS: Metoprolol Tartrate TAB* 25 MG PO SCH ×2 (07:23→19:44)
[2016-10-17] MEDS: Sertraline* 25 MG TAB PO SCH (07:23)
[2016-10-17] MEDS: Folic Acid TAB* 1 MG PO SCH (07:23)
[2016-10-17] MEDS: Magnesium Oxide TAB* 400 MG PO SCH (07:23)
[2016-10-17] MEDS: amLODIPine TAB* 5 MG PO SCH (07:24)
--- NOTE | 2016-10-17 07:39 | PN ---
Subjective Date of Service: 10/17/16 Interval History: Ms. Gonzalez is up in the recliner, sleeping. She awakens easily to verbal stimuli and is calm and smiling this morning. She reports that "I feel fine" and denies any acute complaints, including chest pain, FINN, palpitations, SOB, abd pain, n/ v. She reports her tremor are better with the Librium and prn lorazepam. 1:1 consumer safety officer in room Family History: Unchanged from Admission Social History: Unchanged from Admission Past Medical History: Unchanged from Admission Objective Active Medications: Acetaminophen (Tylenol Tab*) 650 mg PO Q4H PRN PRN Reason: FEVER/PAIN Last Admin: 10/16/16 13:10 Dose: 650 mg Amlodipine Besylate (Norvasc Tab*) 5 mg PO DAILY [facility] Last Admin: 10/17/16 07:24 Dose: 5 mg Aspirin (Aspirin Low Dose Tab*) 81 mg PO DAILY [facility] Last Admin: 10/17/16 07:21 Dose: 81 mg Chlordiazepoxide (Librium Cap*) 50 mg PO TID [facility] Last Admin: 10/17/16 07:22 Dose: 50 mg Enoxaparin Sodium (Lovenox(*)) 40 mg SUBCUT Q24H [facility] Last Admin: 10/16/16 16:38 Dose: 40 mg Folic Acid (Folvite Tab*) 1 mg PO DAILY [facility] Last Admin: 10/17/16 07:23 Dose: 1 mg Hydralazine HCl (Apresoline Iv*) 5 mg IV SLOW PU Q4H PRN PRN Reason: BLOOD PRESSURE Last Admin: 10/17/16 04:16 Dose: 5 mg Lorazepam (Ativan Tab(*)) 0 mg PO .PER [facility] SCORE [facility] PRN Reason: Protocol Last Admin: 10/17/16 04:16 Dose: 1 mg Magnesium Oxide (Magox 400 Tab*) 400 mg PO DAILY [facility] Last Admin: 10/17/16 07:23 Dose: 400 mg Metoprolol Tartrate (Lopressor Tab*) 25 mg PO BID [facility] Last Admin: 10/17/16 07:23 Dose: 25 mg Multivitamins/Minerals (Theragran/Minerals Tab*) 1 tab PO DAILY [facility] Last Admin: 10/17/16 07:21 Dose: 1 tab Omeprazole (Prilosec Cap*) 20 mg PO BID [facility] Last Admin: 10/17/16 07:21 Dose: 20 mg Ondansetron HCl (Zofran Inj*) 4 mg IV Q6H PRN PRN Reason: NAUSEA Potassium Chloride (Klor Con Er Tab*) 20 meq PO DAILY [facility] Last Admin: 10/17/16 07:22 Dose: 20 meq Sertraline HCl (Zoloft*) 25 mg PO DAILY [facility] Last Admin: 10/17/16 07:23 Dose: 25 mg Thiamine HCl (Vitamin B-1 Tab*) 100 mg PO DAILY [facility] Last Admin: 10/17/16 07:22 Dose: 100 mg Vital Signs 10/16/16 10/16/16 10/16/16 07:59 10:11 12:41 Temperature 98.4 F Pulse Rate 76 71 81 Respiratory 16 16 Rate Blood Pressure 192/90 160/76 180/85 (mmHg) O2 Sat by Pulse 98 Oximetry 10/16/16 10/16/16 10/16/16 13:10 15:10 15:14 Temperature 98.2 F Pulse Rate 84 Respiratory 16 16 18 Rate Blood Pressure 174/81 (mmHg) O2 Sat by Pulse 97 Oximetry 10/16/16 10/16/16 10/16/16 16:37 17:34 18:37 Temperature Pulse Rate Respiratory 18 18 19 Rate Blood Pressure (mmHg) O2 Sat by Pulse Oximetry 10/16/16 10/16/16 10/16/16 19:27 19:34 19:58 Temperature 98.9 F Pulse Rate 84 Respiratory 18 18 19 Rate Blood Pressure 183/71 (mmHg) O2 Sat by Pulse 98 Oximetry 10/16/16 10/16/16 10/16/16 19:59 21:58 21:59 Temperature Pulse Rate Respiratory 19 18 18 Rate Blood Pressure (mmHg) O2 Sat by Pulse Oximetry 10/16/16 10/17/16 10/17/16 23:07 04:02 04:16 Temperature 98.1 F Pulse Rate 75 Respiratory 16 16 Rate Blood Pressure 169/76 181/80 (mmHg) O2 Sat by Pulse 97 Oximetry 10/17/16 10/17/16 10/17/16 04:55 06:16 06:36 Temperature Pulse Rate Respiratory 18 16 Rate Blood Pressure 177/83 (mmHg) O2 Sat by Pulse Oximetry 10/17/16 07:22 Temperature Pulse Rate Respiratory 18 Rate Blood Pressure (mmHg) O2 Sat by Pulse Oximetry Oxygen Devices in Use Now: None Appearance: Well appearing female, OOB to chair, NAD Eyes: PERRLA Ears/Nose/Mouth/Throat: Mucous Membranes Moist Respiratory: Symmetrical Chest Expansion and Respiratory Effort, Clear to Auscultation Cardiovascular: NL Sounds; No Murmurs; No JVD, RRR Abdominal: NL Sounds; No Tenderness; No Distention Extremities: No Edema Skin: No Rash or Ulcers Neurological: Alert and Oriented x 3 Lines/Tubes/Other Access: Clean, Dry and Intact Peripheral IV Nutrition: Taking PO's Result Diagrams: 10/15/16 11:50 10/15/16 11:50 Additional Lab and Data: Lab Results 10/15/16 10/15/16 Range/Units 11:50 11:50 WBC 8.1 (3.5-10.8) 10^3/ul RBC 4.43 (4.0-5.4) 10^6/ul Hgb 14.5 (12.0-16.0) g/dl Hct 43 (35-47) % MCV 97 (80-97) fL MCH 33 H (27-31) pg MCHC 34 (31-36) g/dl RDW 20 H (10.5-15) % Plt Count 100 L (150-450) 10^3/ul MPV 9 (7.4-10.4) um3 Neut % (Auto) 40.2 (38-83) % Lymph % (Auto) 45.3 (25-47) % [place] % (Auto) 9.8 H (1-9) % Eos % (Auto) 3.5 (0-6) % Baso % (Auto) 1.2 (0-2) % Absolute Neuts (auto) 3.3 (1.5-7.7) 10^3/ul Absolute Lymphs (auto) 3.7 (1.0-4.8) 10^3/ul Absolute Monos (auto) 0.8 (0-0.8) 10^3/ul Absolute Eos (auto) 0.3 (0-0.6) 10^3/ul Absolute Basos (auto) 0.1 (0-0.2) 10^3/ul Absolute Nucleated RBC 0.01 10^3/ul Nucleated RBC % 0.1 Sodium 141 (133-145) mmol/L Potassium 3.5 (3.5-5.0) mmol/L Chloride 106 (101-111) mmol/L Carbon Dioxide 21 L (22-32) mmol/L Anion Gap 14 H (2-11) mmol/L BUN 15 (6-24) mg/dL Creatinine 0.67 (0.51-0.95) mg/dL Est GFR ( Amer) 111.9 (>60) Est GFR (Non-Af Amer) 87.0 (>60) BUN/Creatinine Ratio 22.4 H (8-20) Glucose 107 H (70-100) mg/dL Calcium 9.0 (8.6-10.3) mg/dL Total Bilirubin 0.90 (0.2-1.0) mg/dL AST 43 H (13-39) U/L ALT 27 (7-52) U/L Alkaline Phosphatase 75 (34-104) U/L Total Protein 7.3 (6.4-8.9) g/dL Albumin 4.1 (3.2-5.2) g/dL Globulin 3.2 (2-4) g/dL Albumin/Globulin Ratio 1.3 (1-3) TSH 2.32 (0.34-5.60) mcIU/mL Salicylates < 2.50 (<30) mg/dL Acetaminophen < 15 mcg/mL Serum Alcohol 448 H* (<10) mg/dL Assess/Plan/Problems-Billing Assessment: Ms. Gonzalez is a 71 yo female with a PMH significant for depression, HTN, and alcohol abuse who was brought in on a 9.41 on 10/15/16 with concern for suicidal ideation. - Patient Problems (1) Alcoholism Code(s): F10.20 - ALCOHOL DEPENDENCE, UNCOMPLICATED Comment: Initially admitted under observation for resolution of blood alcohol level and subsequent MHE. Patient admits to heavy drinking for many years. On [facility] protocol, scoring 3-5 overnight Continue scheduled Librium (2) Suicidal ideation Code(s): R45.851 - SUICIDAL IDEATIONS Comment: Patient seen by mental health residential treatment counselor yesterday; plan for admission to [facility] under 9.39 Per notes, patient's concerned for drinking and short term memory loss He wants patient to be treated in [facility] and then be transferred to inpatient rehab , which patient is currently refusing. (3) Hypertension Code(s): I10 - ESSENTIAL (PRIMARY) HYPERTENSION Comment: Hypertensive, likely exacerbated secondary to withdrawl Continue home metoprolol. Continue amlodipine (added this admission). PRN hydralazine (4) DVT prophylaxis Code(s): [id number] - Comment: SQ Lovenox Status and Disposition: OBV admit. Plan for discharge to [facility] under 9.39. Patient is medically stable for transfer to [facility].
[2016-10-17] MEDS: Enoxaparin(*) 40 MG/0.4 ML SYR SUBCUT SCH (16:00)
[2016-10-18] MEDS: Sertraline* 25 MG TAB PO SCH (07:32)
[2016-10-18] MEDS: Potassium Chlor TAB* 20 MEQ TAB.ER PO SCH (07:32)
[2016-10-18] MEDS: Metoprolol Tartrate TAB* 25 MG PO SCH (07:33)
[2016-10-18] MEDS: Multivitamins/Minerals TAB PO SCH (07:33)
[2016-10-18] MEDS: chlordiazePOXIDE CAP* 25 MG PO SCH ×2 (07:33→12:56)
[2016-10-18] MEDS: Aspirin Low Dose CHEW TAB* 81 MG PO SCH (07:33)
[2016-10-18] MEDS: Folic Acid TAB* 1 MG PO SCH (07:33)
[2016-10-18] MEDS: Omeprazole CAP* 20 MG PO SCH ×2 (07:33→16:00)
[2016-10-18] MEDS: Thiamine TAB* 100 MG TAB PO SCH (07:34)
[2016-10-18] MEDS: Magnesium Oxide TAB* 400 MG PO SCH (07:34)
[2016-10-18] MEDS: amLODIPine TAB* 5 MG PO SCH (07:34)
[2016-10-18] MEDS: Acetaminophen TAB* 325 MG PO PRN (07:38)
--- NOTE | 2016-10-18 07:52 | PN ---
Subjective Date of Service: 10/18/16 Interval History: Patient in room with 1:1 safety lead. She does not endorse any complaints this morning and denies CP, SOB, n/v. Tremors have improved, per the patient. She reports being able to sleep well. Family History: Unchanged from Admission Social History: Unchanged from Admission Past Medical History: Unchanged from Admission Objective Active Medications: Acetaminophen (Tylenol Tab*) 650 mg PO Q4H PRN PRN Reason: FEVER/PAIN Last Admin: 10/18/16 07:38 Dose: 650 mg Amlodipine Besylate (Norvasc Tab*) 5 mg PO DAILY [facility] Last Admin: 10/18/16 07:34 Dose: 5 mg Aspirin (Aspirin Low Dose Tab*) 81 mg PO DAILY [facility] Last Admin: 10/18/16 07:33 Dose: 81 mg Chlordiazepoxide (Librium Cap*) 50 mg PO TID [facility] Last Admin: 10/18/16 07:33 Dose: 50 mg Enoxaparin Sodium (Lovenox(*)) 40 mg SUBCUT Q24H [facility] Last Admin: 10/17/16 16:00 Dose: 40 mg Folic Acid (Folvite Tab*) 1 mg PO DAILY [facility] Last Admin: 10/18/16 07:33 Dose: 1 mg Hydralazine HCl (Apresoline Iv*) 5 mg IV SLOW PU Q4H PRN PRN Reason: BLOOD PRESSURE Last Admin: 10/17/16 04:16 Dose: 5 mg Lorazepam (Ativan Tab(*)) 0 mg PO .PER WAM SCORE [facility] PRN Reason: Protocol Last Admin: 10/17/16 04:16 Dose: 1 mg Magnesium Oxide (Magox 400 Tab*) 400 mg PO DAILY [facility] Last Admin: 10/18/16 07:34 Dose: 400 mg Metoprolol Tartrate (Lopressor Tab*) 25 mg PO BID [facility] Last Admin: 10/18/16 07:33 Dose: 25 mg Multivitamins/Minerals (Theragran/Minerals Tab*) 1 tab PO DAILY [facility] Last Admin: 10/18/16 07:33 Dose: 1 tab Omeprazole (Prilosec Cap*) 20 mg PO BID AC [facility] Last Admin: 10/18/16 07:33 Dose: 20 mg Ondansetron HCl (Zofran Inj*) 4 mg IV Q6H PRN PRN Reason: NAUSEA Potassium Chloride (Klor Con Er Tab*) 20 meq PO DAILY [facility] Last Admin: 10/18/16 07:32 Dose: 20 meq Sertraline HCl (Zoloft*) 25 mg PO DAILY [facility] Last Admin: 10/18/16 07:32 Dose: 25 mg Thiamine HCl (Vitamin B-1 Tab*) 100 mg PO DAILY [facility] Last Admin: 10/18/16 07:34 Dose: 100 mg Vital Signs 10/17/16 10/17/16 10/17/16 08:34 09:22 11:50 Temperature 98.5 F Pulse Rate 67 88 Respiratory 16 18 18 Rate Blood Pressure 163/85 142/66 (mmHg) O2 Sat by Pulse 96 99 Oximetry 10/17/16 10/17/16 10/17/16 13:14 15:14 15:47 Temperature 99.1 F Pulse Rate 86 Respiratory 18 18 20 Rate Blood Pressure 156/77 (mmHg) O2 Sat by Pulse 97 Oximetry 10/17/16 10/17/16 10/17/16 19:11 19:44 21:44 Temperature 99.4 F Pulse Rate 83 Respiratory 22 19 19 Rate Blood Pressure 172/81 (mmHg) O2 Sat by Pulse 98 Oximetry 10/18/16 10/18/16 10/18/16 00:40 00:41 04:13 Temperature 98.9 F 98.9 F 97.9 F Pulse Rate 83 83 78 Respiratory 20 20 20 Rate Blood Pressure 158/82 158/82 146/94 (mmHg) O2 Sat by Pulse 96 96 97 Oximetry 10/18/16 10/18/16 06:08 07:33 Temperature Pulse Rate Respiratory 20 18 Rate Blood Pressure (mmHg) O2 Sat by Pulse Oximetry Oxygen Devices in Use Now: None Appearance: Female patient, OOB to chair, NAD Eyes: PERRLA Ears/Nose/Mouth/Throat: Mucous Membranes Moist Respiratory: Symmetrical Chest Expansion and Respiratory Effort, Clear to Auscultation Cardiovascular: NL Sounds; No Murmurs; No JVD, RRR Abdominal: NL Sounds; No Tenderness; No Distention Extremities: No Edema Skin: No Rash or Ulcers Lines/Tubes/Other Access: Clean, Dry and Intact Peripheral IV Nutrition: Taking PO's Result Diagrams: 10/15/16 11:50 10/15/16 11:50 Additional Lab and Data: Lab Results 10/15/16 10/15/16 Range/Units 11:50 11:50 WBC 8.1 (3.5-10.8) 10^3/ul RBC 4.43 (4.0-5.4) 10^6/ul Hgb 14.5 (12.0-16.0) g/dl Hct 43 (35-47) % MCV 97 (80-97) fL MCH 33 H (27-31) pg MCHC 34 (31-36) g/dl RDW 20 H (10.5-15) % Plt Count 100 L (150-450) 10^3/ul MPV 9 (7.4-10.4) um3 Neut % (Auto) 40.2 (38-83) % Lymph % (Auto) 45.3 (25-47) % [place] % (Auto) 9.8 H (1-9) % Eos % (Auto) 3.5 (0-6) % Baso % (Auto) 1.2 (0-2) % Absolute Neuts (auto) 3.3 (1.5-7.7) 10^3/ul Absolute Lymphs (auto) 3.7 (1.0-4.8) 10^3/ul Absolute Monos (auto) 0.8 (0-0.8) 10^3/ul Absolute Eos (auto) 0.3 (0-0.6) 10^3/ul Absolute Basos (auto) 0.1 (0-0.2) 10^3/ul Absolute Nucleated RBC 0.01 10^3/ul Nucleated RBC % 0.1 Sodium 141 (133-145) mmol/L Potassium 3.5 (3.5-5.0) mmol/L Chloride 106 (101-111) mmol/L Carbon Dioxide 21 L (22-32) mmol/L Anion Gap 14 H (2-11) mmol/L BUN 15 (6-24) mg/dL Creatinine 0.67 (0.51-0.95) mg/dL Est GFR ( Amer) 111.9 (>60) Est GFR (Non-Af Amer) 87.0 (>60) BUN/Creatinine Ratio 22.4 H (8-20) Glucose 107 H (70-100) mg/dL Calcium 9.0 (8.6-10.3) mg/dL Total Bilirubin 0.90 (0.2-1.0) mg/dL AST 43 H (13-39) U/L ALT 27 (7-52) U/L Alkaline Phosphatase 75 (34-104) U/L Total Protein 7.3 (6.4-8.9) g/dL Albumin 4.1 (3.2-5.2) g/dL Globulin 3.2 (2-4) g/dL Albumin/Globulin Ratio 1.3 (1-3) TSH 2.32 (0.34-5.60) mcIU/mL Salicylates < 2.50 (<30) mg/dL Acetaminophen < 15 mcg/mL Serum Alcohol 448 H* (<10) mg/dL Microbiology and Other Data: Microbiology 10/16/16 00:36 Urine Culture - Final Urine Assess/Plan/Problems-Billing Assessment: Ms. Gonzalez is a 71 yo female with a PMH significant for depression, HTN, and alcohol abuse who was brought in on a 9.41 on 10/15/16 with concern for suicidal ideation. - Patient Problems (1) Alcoholism Code(s): F10.20 - ALCOHOL DEPENDENCE, UNCOMPLICATED Comment: Initially admitted under observation for resolution of blood alcohol level and subsequent MHE. Patient admits to heavy drinking for many years. On [facility] protocol, scoring 2-4 Continue scheduled Librium and prn lorazepam (2) Suicidal ideation Code(s): R45.851 - SUICIDAL IDEATIONS Comment: Patient seen by mental health doll wigs hackler 10/16; plan for admission to [facility] under 9.39 Per notes, patient's concerned for drinking and short term memory loss He wants patient to be treated in [facility] and then be transferred to inpatient rehab , which patient is currently refusing. (3) Hypertension Code(s): I10 - ESSENTIAL (PRIMARY) HYPERTENSION Comment: Improved Mildly hypertensive, likely exacerbated secondary to withdrawl Continue home metoprolol. Continue amlodipine (added this admission). PRN hydralazine (4) DVT prophylaxis Code(s): [id number] - Comment: SQ Lovenox Status and Disposition: Inpatient admit. Plan for discharge to [facility] under 9.39. Patient is medically stable for transfer to [facility].
[2016-10-18 15:44] VITALS: BP 127/73
[2016-10-18] MEDS: Enoxaparin(*) 40 MG/0.4 ML SYR SUBCUT SCH (16:00)
[2016-10-18] MEDS ORDERED: Al Hydrox/Mg Hydrox/Simet LIQ* 30 ML Q2P GAST DISTRESS PO PRN (18:00)
[2016-10-18] MEDS ORDERED: LORazepam TAB(*) WAM SCALE 0-6 MG PO SCH (18:00)
[2016-10-18] MEDS ORDERED: LORazepam IM* PER WAM PARAMETERS IM SCH (18:00)
[2016-10-18] MEDS ORDERED: chlorproMAZINE TAB* 50 MG PO PRN (18:02)
[2016-10-18] MEDS ORDERED: Mouth Piece, Nicotine* 1 EACH CARTRIDGE INH SCH (18:05)
[2016-10-18] MEDS ORDERED: Nicotine GUM* 2 MG PO PRN (18:05)
[2016-10-18] MEDS ORDERED: Nicotine Inhaler* 10 MG AMP INH PRN (18:05)
[2016-10-19] MEDS ORDERED: chlordiazePOXIDE CAP* 25 MG PO SCH (09:00)
--- NOTE | 2016-10-19 13:34 | DS ---
MEDICINE DISCHARGE SUMMARY: DATE OF ADMISSION: 10/15/16 DATE OF DISCHARGE: 10/18/16 PROVIDER: Terra Dos Santos NP ATTENDING PHYSICIAN: Sofía Aleman MD * (as dictated by Terra Dos Santos NP) PRIMARY CARE PROVIDER: Josh Jameson MD, PRIMARY DISCHARGE DIAGNOSES: 1. Acute alcohol intoxication. 2. Alcohol withdrawal. 3. Suicidal ideation. SECONDARY DISCHARGE DIAGNOSES: 1. Hypertension. 2. Depression. 3. Chronic alcohol abuse. MEDICATIONS AT DISCHARGE: 1. Lorazepam 1 mg t.i.d. p.r.n. 2. Aspirin 81 mg daily. 3. Folic acid 1 mg daily. 4. Potassium chloride 20 mEq daily. 5. Metoprolol tartrate 25 mg b.i.d. 6. Magnesium oxide 400 mg daily. 7. Sertraline 25 mg daily. 8. Omeprazole 20 mg b.i.d. 9. Multivitamin 1 tab daily. HOSPITAL COURSE OF STAY: For full details, please refer to the H and P provided on 10/15/16. In summary, Ms. Gonzalez is a 71-year-old female who was brought into the emergency room under 9.41 order. Patient was intoxicated and had a blood alcohol level of 448. She was admitted initially under observation and was ordered to have a mental health eval because she was expressing suicidal ideation, stating that she is upset that her had left to go to [place] and was threatening self- harm. Patient was admitted and the following morning, was able to have her mental health eval once her blood alcohol level had resolved. A mental health evaluation did take place later on in the afternoon on 10/16/16, and it was determined that the patient will need to come in under a 9.39 due to concern for suicidal ideation and risk for self- harm. Patient's also had expressed his concern and was to be admitted to an inpatient rehab, which the patient is currently refusing. For more details, please refer to the social work notes and mental health evaluation. Prior to discharge to the mental health unit, the patient remained on the medical floor for further observation due to acute alcohol withdrawal. She was placed on standing Librium and treated on the [facility] protocol with p.r.n. lorazepam and did well with this. She did have some minimal hypertension which has since improved as her withdrawal symptoms have also improved. We did maintain her on amlodipine, which she has responded well to, to help manage her blood pressures. At this time, we will stop this, but this might be a good choice of medication for the patient if hypertension continues to be an issue beyond her withdrawal. The patient is now medically stable. There are no acute concerns or needs. She will be discharged to mental health unit under a 9.39 order for further evaluation and care. CONCERNS AT DISCHARGE: Ms. Gonzalez will be discharged to behavioral sciences unit on 10/18/16. DIET: Regular, heart healthy diet. ACTIVITY: As tolerated. CONDITION: Stable. DISPOSITION: To [facility]. TIME SPENT: Time spent on this discharge was approximately 40 minutes. Again, this is only a brief summary of the patient's hospital course of stay. For full details, please refer to the full medical record. If you have any further questions or need further assistance, please feel free to contact me at . TERRA DOS SANTOS NP CC: Josh Jameson MD * [id number]/CPS #: [id number] CLYDE
== END 2016-10-18 17:00 | DRG 897 ==
LOC: ED 11:27 → MEDTELE 15:34 → OBSVTOIN 10-16 06:00
PROVIDERS: ADMIT Internal Medicine; ATTEND Internal Medicine
PROC: HZ2ZZZZ Detoxification Services for Substance Abuse Treatment (ICD-10-PCS; principal; 2016-10-17)
DX: F10.229 Alcohol dependence with intoxication, unspecified (principal); F10.239 Alcohol dependence with withdrawal, unspecified; R45.851 Suicidal ideations; I10 Essential (primary) hypertension; F32.9 Major depressive disorder, single episode, unspecified; E78.5 Hyperlipidemia, unspecified; K21.9 Gastro-esophageal reflux disease without esophagitis; Y90.8 Blood alcohol level of 240 mg/100 ml or more; Z81.1 Family history of alcohol abuse and dependence; Z80.9 Family history of malignant neoplasm, unspecified; Z82.49 Family history of ischemic heart disease and other diseases of the circulatory system; Z79.82 Long term (current) use of aspirin
CPT/HCPCS: 36415; 80053; 80307; 80320; 80329; 81003; 81015; 83735; 84443; 85025; 87086; A9270-GY; G0378; G0480; J0360; J1650

== ENCOUNTER 2016-10-18 17:27 | Inpatient (IN) | payer MEDICARE ==
[2016-10-18] MEDS ORDERED: Al Hydrox/Mg Hydrox/Simet LIQ* 30 ML UDC PO PRN (21:13)
[2016-10-18] MEDS ORDERED: chlorproMAZINE TAB* 50 MG PO PRN (21:14)
[2016-10-18] MEDS: Acetaminophen TAB* 325 MG PO PRN (21:40)
[2016-10-18] MEDS ORDERED: LORazepam TAB(*) WAM SCALE 0-6 MG PO SCH (22:00)
[2016-10-18] MEDS ORDERED: LORazepam IM* PER WAM PARAMETERS IM SCH (22:00)
[2016-10-18] MEDS: Metoprolol Tartrate TAB* 25 MG PO SCH (22:07)
[2016-10-19] MEDS: Aspirin Low Dose CHEW TAB* 81 MG PO SCH (08:22)
[2016-10-19] MEDS: Potassium Chlor TAB* 20 MEQ TAB.ER PO SCH (08:23)
[2016-10-19] MEDS: Folic Acid TAB* 1 MG PO SCH (08:23)
[2016-10-19] MEDS: amLODIPine TAB* 5 MG PO SCH (08:23)
[2016-10-19] MEDS: chlordiazePOXIDE CAP* 25 MG PO SCH (08:23)
[2016-10-19] MEDS: Vitamin THERAPEUTIC TAB PO SCH (08:24)
[2016-10-19] MEDS: Metoprolol Tartrate TAB* 25 MG PO SCH ×2 (08:24→20:18)
[2016-10-19] MEDS: Magnesium Oxide TAB* 400 MG PO SCH (08:24)
[2016-10-19] MEDS: Sertraline* 25 MG TAB PO SCH (08:24)
[2016-10-19] MEDS: Omeprazole CAP* 20 MG PO SCH ×2 (08:24→15:27)
[2016-10-19] MEDS: Ibuprofen TAB* 400 MG PO PRN ×2 (09:25→20:21)
--- NOTE | 2016-10-19 11:25 | PN ---
MHU: Group Therapy Note - Service Type Service Type: [id number] Group Psychotherapy - Cognitive Behavioral Group Therapy ( CBT):Patient attended CBT programming this morning and presented with flat affect that did not vary with discussion. Although responsive to direct prompts to respond to questions, patient did not engage in spontaneous conversation.
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
[2016-10-19] MEDS: CMC:Naltrexone (NF) 50 MG TAB PO SCH (20:18)
[2016-10-20] MEDS: Omeprazole CAP* 20 MG PO SCH ×2 (07:46→16:26)
[2016-10-20] MEDS: CMC:Naltrexone (NF) 50 MG TAB PO SCH (08:38)
[2016-10-20] MEDS: Metoprolol Tartrate TAB* 25 MG PO SCH ×2 (08:38→20:46)
[2016-10-20] MEDS: Potassium Chlor TAB* 20 MEQ TAB.ER PO SCH (08:38)
[2016-10-20] MEDS: Folic Acid TAB* 1 MG PO SCH (08:38)
[2016-10-20] MEDS: chlordiazePOXIDE CAP* 25 MG PO SCH (08:39)
[2016-10-20] MEDS: Aspirin Low Dose CHEW TAB* 81 MG PO SCH (08:40)
[2016-10-20] MEDS: Vitamin THERAPEUTIC TAB PO SCH (08:40)
[2016-10-20] MEDS: Magnesium Oxide TAB* 400 MG PO SCH (08:40)
[2016-10-20] MEDS: amLODIPine TAB* 5 MG PO SCH (08:40)
[2016-10-20] MEDS: Sertraline* 25 MG TAB PO SCH (08:40)
--- NOTE | 2016-10-20 11:40 | PN ---
MHU: Group Therapy Note - Service Type Service Type: 77713 Group Psychotherapy - Cognitive Behavioral Group Therapy ( CBT):Patient was attentive and participatory in CBT programming this morning, and remained in good behavioral control. Patient expressed positive insights regarding relevant treatment interventions and goals. Nikki was tearful then prompted into discussion, stating that her is from her. She responded positively to staff and peer support.
--- NOTE | 2016-10-20 12:31 | PN ---
Subjective - Subjective Service Type: 77389 Hosp care 15 min low complexity Subjective: Sonia says today that she will go to rehab if one will take her. She reported to staff that she knows of one in [place] that will take her insurance , which has been conveyed to her web content & social media manager. She thought it was November 07 today. She denies mood disturbance, dangerous intent/plan or psychosis. 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 Librium and Thorazine added by Dr Glover Tuesday evening. Rationale for this not found in notes/reports and is unknown to charge nurse Dago. Sonia has not scored on the WAM from before first dose Librium, denies need for medication for agitation. Objective - Appearance Appearance: Well Developed/Nourished Dysmorphic Features: No Hygiene: Normal Grooming: Well Kept - Behavior Psychomotor Activities: Abnormal-Decreased - remains slowed several days after admission without use of benzo for any w/d signs/symptoms Exhibits Abnormal Movement: No - Attitude and Relatedness Attitude and Relatedness: Cooperative Eye Contact: Good - Speech Quality: Unpressured Latencies: Long Quantity: Terse - Mood Patient's Decription of Mood: "Good" - Affect Observed Affect: Fair Affect Consistent with: Euthymia - Thought Process Patient's Thought Process: Coherent, Goal Directed, Impoverished Thought Content: No Passive Wish, No Suicidal Planning, No Homicidal Ideation, No Paranoid Ideation - Sensorium Experiencing Hallucinations: No, Sensorium is Clear Type of Hallucinations: Visual: No, Auditory: No, Command: No - Level of Consciousness Level of Consciousness: Alert - but slowed Orientation: Yes Orientated to Place, Yes Orientated to Person, No Orientated to Time - said it was the 07 of november - Impulse Control Impulse Control: Intact - Insight and Judgement Insight and Judgement: Poor - but improving in reckoning with risks of relapse to alcohol - Group Participation Particating in Group Activities: Yes Group Participation Comments: declining most though - Medication Management Medication Management Adherence: Yes Assessment - Assessment Merits Inpatient Hospitalization: For Stabilization, Consolidate Improvements, For Discharge Planning Inpatient DSM-IV Dx: Unspecified depressive disorder with report of low mood, suicidality and poor sleep, possibly confounded with severe alcohol use disorder. Clinical Impression: Sonia Montez is a 71-year-old woman who clearly has a severe alcohol use disorder. She denies any currently active symptoms of mood disorder or other psychiatric disorder, aside from difficulties that could be attributed to the alcohol, including poor sleep, mood being down, and fall off of her appetite. She has declined referral to an inpatient rehab which would be the treatment most likely to effect a step into sustained abstinence for this woman. She has agreed, however, to a trial of Naltrexone which would be the most likely helpful antialcohol medication for her. In an elderly woman, Antabuse would be relatively contraindicated due to higher risk from acetaldehyde. We will be encouraging her to make use of the therapeutic milieu and groups. I will try to reach Dr. Jameson to discuss treatment options for her. We are hoping for communication with the , although at this point she states that she does not want to us to release any information to him. This will be a hindrance to full safety assessment and care if this continues. Aftercare per her current report is most likely to be referral to AA and ADC, but I will again broach the topic with her prior to discharge of inpatient rehab services, which have a higher likelihood of successful establishment and maintenance of abstinence. She is encouraged to make use of the therapeutic milieu and groups. She will be monitored for mental status and safety. 5.3.17 Sonia reports stable mood with no dangerous intent/plan, and no psychosis. She is now agreeable to inpatient rehab if it can be arranged for her. She agrees now to a family meeting, but does not want us to share clinical information with her without her present. She does not recall any complaint on Tuesday that would have given rise to orders for Librium or Thorazine. Dr Jameson does not believe she will benefit from outpatient rehab, advocates for inpatient, requests appointment with his office in first few days after discharge if inpatient rehab not found. Plan - Plan Treatment Plan: Name: SONIA MONTEZ Birthdate: 1945 [id number] D/C'd [place] protocol, librium, thorazine. Continue other meds. Dr Jameson approves of naltrexone and change on med floor from lisinopril to Norvasc: she had been on metoprolol. Social work pursuing rehab. Continued Medication Management: Continue Outpt Medication Medications: Current Medications Acetaminophen (Tylenol Tab*) 650 mg PO Q4H PRN PRN Reason: PAIN or TEMP > 101 F Last Admin: 10/18/16 21:40 Dose: 650 mg Al Hydrox/Mg Hydrox/Simethicone (Maalox Plus*) 30 ml PO Q4H PRN PRN Reason: INDIGESTION Amlodipine Besylate (Norvasc Tab*) 5 mg PO DAILY [facility] Last Admin: 10/20/16 08:40 Dose: 5 mg Aspirin (Aspirin Low Dose Tab*) 81 mg PO DAILY [facility] Last Admin: 10/20/16 08:40 Dose: 81 mg Chlordiazepoxide (Librium Cap*) 50 mg PO DAILY [facility] Stop: 10/21/16 09:01 Last Admin: 10/20/16 08:39 Dose: 50 mg Chlorpromazine HCl (Thorazine Tab*) 50 mg PO Q3H PRN PRN Reason: ANXIETY/AGITATION Last Admin: 10/18/16 22:07 Dose: 50 mg Folic Acid (Folvite Tab*) 1 mg PO DAILY [facility] Last Admin: 10/20/16 08:38 Dose: 1 mg Ibuprofen (Motrin Tab*) 400 mg PO Q6H PRN PRN Reason: PAIN Last Admin: 10/19/16 20:21 Dose: 400 mg Lorazepam (Ativan Inj*) 0 - 6 mg IM .PER WAM PARAMETERS [facility] PRN Reason: Protocol Lorazepam (Ativan Tab(*)) 0 - 6 mg PO .PER WAM PARAMETERS [facility] PRN Reason: Protocol Magnesium Oxide (Magox 400 Tab*) 400 mg PO DAILY [facility] Last Admin: 10/20/16 08:40 Dose: 400 mg Metoprolol Tartrate (Lopressor Tab*) 25 mg PO BID [facility] Last Admin: 10/20/16 08:38 Dose: 25 mg Multivitamins (Theragran Tab*) 1 tab PO DAILY [facility] Last Admin: 10/20/16 08:40 Dose: 1 tab Naltrexone HCl (Naltrexone (Nf)) 25 mg PO DAILY [facility] PRN Reason: Protocol Last Admin: 10/20/16 08:38 Dose: 25 mg Omeprazole (Prilosec Cap*) 20 mg PO BID [facility] Last Admin: 10/20/16 07:46 Dose: 20 mg Potassium Chloride (Klor Con Er Tab*) 20 meq PO DAILY [facility] Last Admin: 10/20/16 08:38 Dose: 20 meq Sertraline HCl (Zoloft*) 25 mg PO DAILY [facility] Last Admin: 10/20/16 08:40 Dose: 25 mg - Discharge Plan Discharge Plan: Drug/Alcohol Rehab
[2016-10-20] MEDS: Ibuprofen TAB* 400 MG PO PRN (16:26)
[2016-10-20] MEDS: Acetaminophen TAB* 325 MG PO PRN (20:49)
[2016-10-21 08:24] VITALS: BP 115/72
[2016-10-21] MEDS: Vitamin THERAPEUTIC TAB PO SCH (08:47)
[2016-10-21] MEDS: Folic Acid TAB* 1 MG PO SCH (08:47)
[2016-10-21] MEDS: Potassium Chlor TAB* 20 MEQ TAB.ER PO SCH (08:47)
[2016-10-21] MEDS: Metoprolol Tartrate TAB* 25 MG PO SCH (08:47)
[2016-10-21] MEDS: chlordiazePOXIDE CAP* 25 MG PO SCH (08:47)
[2016-10-21] MEDS: amLODIPine TAB* 5 MG PO SCH (08:48)
[2016-10-21] MEDS: Magnesium Oxide TAB* 400 MG PO SCH (08:48)
[2016-10-21] MEDS: Omeprazole CAP* 20 MG PO SCH ×2 (08:48→16:18)
[2016-10-21] MEDS: Aspirin Low Dose CHEW TAB* 81 MG PO SCH (08:48)
[2016-10-21] MEDS: Sertraline* 25 MG TAB PO SCH (08:48)
[2016-10-21] MEDS: CMC:Naltrexone (NF) 50 MG TAB PO SCH (08:48)
--- NOTE | 2016-10-21 14:45 | DS ---
Subjective - Subjective Service Types: [id number] [facility] Day Mgmt complex over 30 min Discharge Date: 10/21/16 Subjective: Sonia requests discharge today to follow up care in the outpatient setting for treatment of her alcohol use disorder. She refuses to stay here to await placement into inpatient rehab services. She reports today, as she has throughout this admission, that she has no thoughts of harming herself or others. She has given no subjective report of any other psychiatric symptoms. She does report having only consumed Ensure for nutritional calories since admission to the hospital, just as she has done in the past when in the early stages of sobriety. She has no physical complaints. Objective - Appearance Appearance: Well Developed/Nourished Dysmorphic Features: No Hygiene: Normal Grooming: Fairly Well Kept - Behavior Psychomotor Activities: Normal Exhibits Abnormal Movement: No - Attitude and Relatedness Attitude and Relatedness: Cooperative - but disagrees with recommendations Eye Contact: Good - Speech Quality: Unpressured Latencies: Normal Quantity: Appropriate - Mood Patient's Decription of Mood: "Good" - Affect Observed Affect: Fair Affect Consistent with: Euthymia - Thought Process Patient's Thought Process: Coherent, Goal Directed - Sensorium Experiencing Hallucinations: No, Sensorium is Clear Type of Hallucinations: Visual: No, Auditory: No, Command: No - Level of Consciousness Level of Consciousness: Alert Orientation: Yes Intact, Yes Orientated to Time, Yes Orientated to Place, Yes Orientated to Person - Impulse Control Impulse Control: Intact - Insight and Judgement Insight and Judgement: Poor - Group Participation Particating in Group Activities: Yes Group Participation Comments: but few - Medication Management Medication Management Adherence: Yes Treatment Course & Assessment Clinical Course & Impression: Sonia Gonzalez is a 71-year-old woman who clearly has a severe alcohol use disorder. She denies any currently active symptoms of mood disorder or other psychiatric disorder, aside from difficulties that could be attributed to the alcohol, including poor sleep, mood being down, and fall off of her appetite. She has declined referral to an inpatient rehab which would be the treatment most likely to effect a step into sustained abstinence for this woman. She has agreed, however, to a trial of Naltrexone which would be the most likely helpful anti-alcohol medication for her. In an elderly woman, Antabuse would be relatively contraindicated due to higher risk from acetaldehyde. We will be encouraging her to make use of the therapeutic milieu and groups. I will try to reach Dr. Jameson to discuss treatment options for her. We are hoping for communication with the , although at this point she states that she does not want to us to release any information to him. This will be a hindrance to full safety assessment and care if this continues. Aftercare per her current report is most likely to be referral to AA and ADC, but I will again broach the topic with her prior to discharge of inpatient rehab services, which have a higher likelihood of successful establishment and maintenance of abstinence. She is encouraged to make use of the therapeutic milieu and groups. She will be monitored for mental status and safety. 5.3.17 Sonia reports stable mood with no dangerous intent/plan, and no psychosis. She is now agreeable to inpatient rehab if it can be arranged for her. She agrees now to a family meeting, but does not want us to share clinical information with her without her present. She does not recall any complaint on Tuesday that would have given rise to orders for Librium or Thorazine. Dr Jameson does not believe she will benefit from outpatient rehab, advocates for inpatient, requests appointment with his office in first few days after discharge if inpatient rehab not found. 5.4.17 Have clarified that Librium was ordered on admission to load with benzos against any alcohol withdrawal symptoms. Did well without Thorazine. Sonia requests discharge today. She is assessed as at no acutely increased risk of physical harm either from intentions of from neglect of self- care to support continued involuntary admission, so will discharge per her request. She remains at increased chronic risks that she has been under for several years now, of relapse to alcohol and continued malnutrition therefrom, but these risks are not imminent and she has survived them for years. She denies any cravings for alcohol and voices commitment to outpatient rehab services starting tomorrow morning. She denies any mood disturbance, dangerous intent/plan, or any other concerning psychiatric symptoms. She reports that she will resume eating when she gets home. If she adheres to aftercare plans as she says she will, she will reduce her chronic risks. I spoke with Dr Mitchell today in coverage for Dr Jameson. He requested, as Dr Jameson did yesterday, that we arrange for an appointment soon after discharge to follow up regarding medical issues: she has an appointment Tuesday. She will also go for an intake at [facility]. She reports that while she is limiting to a minimum communication with her , that they are agreeable to splitting proceeds from sale of their home and . There is no reported history of domestic violence or any other identified acute risk in returning to the home she shares with her other than the risk of relapse to alcohol, which she says she will not do. While it is disappointing she has not agreed to inpatient rehab services for her alcohol use disorder, there is no legal basis to compel her to enter this treatment against her will. She has been offered multiple outpatient services that she has agreed to follow up with, and there are no better options available to address this problem. She has agreed to continue naltrexone against cravings and reinforcing effects of alcohol, which can prevent relapse. Merits Inpatient Hospitalization: No Clear for Discharge: Adequate Clinical Respons, Acceptable Safety Profile, Low Utility of Inpt Care Inpatient DSM-IV Dx: Unspecified depressive disorder with report of low mood, suicidality and poor sleep, possibly confounded with severe alcohol use disorder. - Wiota II MR and Personality Disorder: Deferred - Wiota III Medical Illness: hypertension - Wiota IV Stressors: failing marriage, limited day structure since half-way Family: marriage is ending, unclear level of support from children, although she says her son Santi is strongly supportive Primary Support Group: children - Wiota V [id number]: 71 Estimate of Highest-Past Year: 71 Discharge Planning - Discharge Planning Discharge Plan: Outpatient Follow Up Outpatient Program: [facility] Recommendations for Continuing Care: Medication Management, Psychotherapy, Substance Abuse Counseling - at [facility] starting tomorrow morning Medications: Sonia reports having good supply at home of all medications but those for which dispensing count is indicated below. Acetaminophen (Tylenol Tab*) 650 mg PO Q4H PRN PRN Reason: PAIN or TEMP > 101 F Last Admin: 10/20/16 20:49 Dose: 650 mg Amlodipine Besylate (Norvasc Tab*) 5 mg PO DAILY [facility] Last Admin: 10/21/16 08:48 Dose: 5 mg : # 30, 0 refill Aspirin (Aspirin Low Dose Tab*) 81 mg PO DAILY [facility] Last Admin: 10/21/16 08:48 Dose: 81 mg Folic Acid (Folvite Tab*) 1 mg PO DAILY [facility] Last Admin: 10/21/16 08:47 Dose: 1 mg Ibuprofen (Motrin Tab*) 400 mg PO Q6H PRN PRN Reason: PAIN Last Admin: 10/20/16 16:26 Dose: 400 mg Magnesium Oxide (Magox 400 Tab*) 400 mg PO DAILY [facility] Last Admin: 10/21/16 08:48 Dose: 400 mg Metoprolol Tartrate (Lopressor Tab*) 25 mg PO BID [facility] Last Admin: 10/21/16 08:47 Dose: 25 mg Multivitamins (Theragran Tab*) 1 tab PO DAILY [facility] Last Admin: 10/21/16 08:47 Dose: 1 tab Naltrexone HCl (Naltrexone (Nf)) 25 mg PO DAILY [facility] PRN Reason: Protocol Last Admin: 10/21/16 08:48 Dose: 25 mg : # 15 x 50 mg, 0 refill Omeprazole (Prilosec Cap*) 20 mg PO BID [facility] Last Admin: 10/21/16 08:48 Dose: 20 mg Potassium Chloride (Klor Con Er Tab*) 20 meq PO DAILY [facility] Last Admin: 10/21/16 08:47 Dose: 20 meq Sertraline HCl (Zoloft*) 25 mg PO DAILY [facility] Last Admin: 10/21/16 08:48 Dose: 25 mg : # 30 x 25 mg, 0 refill Discharge Planning: Prescriptions provided for discharge [x] Yes : to [facility] [address] in [place] [] No Follow up care details as per social work arrangements. Patient response to discharge plan: [x] eager for discharge [x] agreeable with discharge plan [] ambivalent about discharge [] disagrees with discharge today
== END 2016-10-21 16:30 | disposition home or self-care (01) | DRG 881 ==
LOC: BSU 19:36
PROVIDERS: ADMIT Psychiatry & Neurology Psychiatry; ATTEND Psychiatry & Neurology Psychiatry
PROC: GZHZZZZ Group Psychotherapy (ICD-10-PCS; principal; 2016-10-19)
PROC: GZ58ZZZ Individual Psychotherapy, Cognitive-Behavioral (ICD-10-PCS; 2016-10-19)
DX: F32.9 Major depressive disorder, single episode, unspecified (principal); I10 Essential (primary) hypertension; Y90.9 Presence of alcohol in blood, level not specified; Z72.89 Other problems related to lifestyle
CPT/HCPCS: 90853; 99222; 99231; 99238; A9270-GY

== ENCOUNTER 2016-11-06 18:19 | Emergency (ER) | payer MEDICARE ==
[2016-11-06] MEDS ORDERED: Magnesium Sulfate 1 GM IV* 1 GM/100 ML BAG IV ONE (18:58)
[2016-11-06] MEDS ORDERED: Thiamine IV* 100 MG, Folic Acid IV* 1 MG, Multiple Vitamin IV ADULT* 10 ML in NS 0.9% 1... IV ONE (18:58)
[2016-11-06 19:23] LABS: Hematocrit 49 % (35-47); Hemoglobin 16.2 g/dl (12.0-16.0); Mean Corpuscular HGB Conc 33 g/dl (31-36); Mean Corpuscular Hemoglobin 33 pg (27-31); Mean Corpuscular Volume 98 fL (80-97); Mean Platelet Volume 9 um3 (7.4-10.4); Red Cell Distribution Width 19 % (10.5-15); White Blood Count 5.2 10^3/ul (3.5-10.8)
[2016-11-06 19:37] LABS: ALT 37 U/L (7-52); AST 57 U/L (13-39); Alkaline Phosphatase 115 U/L (34-104); Anion Gap 12 mmol/L (2-11); BUN/Creatinine Ratio 20.3 (8-20); Blood Urea Nitrogen 14 mg/dL (6-24); CO2 Carbon Dioxide 25 mmol/L (22-32); Calcium 9.4 mg/dL (8.6-10.3); Chloride 106 mmol/L (101-111); EGFR African American 108.2 (>60); EGFR Non-African American 84.1 (>60); Globulin 3.3 g/dL (2-4); Glucose 101 mg/dL (70-100); Potassium 3.9 mmol/L (3.5-5.0); Sodium 143 mmol/L (133-145); Total Protein 7.3 g/dL (6.4-8.9)
[2016-11-06 19:49] LABS: Acetaminophen < 15 mcg/mL; Alcohol 332 mg/dL (<10); Salicylate < 2.50 mg/dL (<30)
[2016-11-06 19:59] LABS: TSH (Thyroid Stimulating Horm) 2.63 mcIU/mL (0.34-5.60)
[2016-11-06] MEDS ORDERED: LORazepam INJ* 2 MG/ML 1 ML VIAL IM ONE (20:00)
[2016-11-06] MEDS ORDERED: diPHENhydraMINE IV* 50 MG/ML 1 ml VIAL (BENADRYL) IM ONE (20:00)
[2016-11-06] MEDS ORDERED: Haloperidol INJ IV/IM* 5 MG/ML AMP IM ONE (20:00)
[2016-11-06] MEDS ORDERED: LORazepam INJ* 2 MG/ML 1 ML VIAL ONE (20:02)
[2016-11-06] MEDS ORDERED: Haloperidol INJ IV/IM* 5 MG/ML AMP ONE (20:02)
[2016-11-06] MEDS ORDERED: diPHENhydraMINE IV* 50 MG/ML 1 ml VIAL (BENADRYL) ONE (20:02)
--- NOTE | 2016-11-06 23:22 | ED ---
Ben White Erika, scribed for Christian Limon MD on 11/06/16 at 1913 . Substance Abuse/Use - HPI Summary HPI Summary: Patient is a 71-year-old female BIB Police to the ED as a . Patient reports that she drank 1/2 bottle of vodka today, which is the amount she drinks daily. She states her son called the police because she stated she was "so depressed" due to the drinking, and stated she thought she was going to commit suicide. In the ED, pt states "I need help" and "I really want to stop drinking but I can't." She reports she stopped drinking 5 months ago for 2 months, but started again 3 months ago. She states she was prescribed lorazepam by her PCP, Dr. Jameson, prior to quitting, and did not experience withdrawal symptoms. - History Of Current Complaint Chief Complaint: EDMentalHealth Stated Complaint: Time Seen by Provider: 11/06/16 18:42 Hx Obtained From: Patient Hx Last Menstrual Period: unknown Ingestion History: Type/Name Of Drug - EtOH, Amount Ingested - 1/2 bottle vodka Timing Of Abuse: Daily Severity Currently: Moderate Character: Depressed, Stuporous - Allergies/Home Medications Allergies/Adverse Reactions: Allergies Allergy/AdvReac Type Severity Reaction Status Date / Time No Known Allergies Allergy Verified 09/05/16 10:30 PMH/Surg Hx/FS Hx/Imm Hx Endocrine/Hematology History: Denies: Hx Anticoagulant Therapy, Hx Diabetes, Hx Thyroid Disease Cardiovascular History: Reports: Hx Hypertension Denies: Hx Pacemaker/ICD Respiratory History: Denies: Hx Asthma, Hx Chronic Obstructive Pulmonary Disease (COPD) GI History: Reports: Hx Gastroesophageal Reflux Disease, Other GI Disorders - History of errosive esophagitis Denies: Hx Gastrointestinal Bleed History: Denies: Hx Renal Disease Sensory History: Reports: Hx Contacts or Glasses Denies: Hx Hearing Aid Opthamlomology History: Reports: Hx Contacts or Glasses Neurological History: Denies: Hx Dementia, Hx Seizures Psychiatric History: Reports: Hx Depression, Hx Substance Abuse Denies: Hx Anxiety, Hx Eating Disorder, Hx of Violent Episodes Against Others Infectious Disease History: No Infectious Disease History: Denies: Hx Hepatitis, Hx Human Immunodeficiency Virus (HIV), Traveled Outside the [place] in Last 30 Days - Family History Known Family History: Positive: Other - Alcoholism - Social History Alcohol Use: Daily Alcohol Amount: 1/2 bottle of vodka/day Hx Substance Use: No Substance Use Type: Reports: None Hx Tobacco Use: No Smoking Status (MU): Never Smoked Tobacco Review of Systems Neurological: Other - Intoxicated Positive: Depressed - with SI All Other Systems Reviewed And Are Negative: Yes Physical Exam Triage Information Reviewed: Yes Vital Signs On Initial Exam: Initial Vitals Temp Pulse Resp BP Pulse Ox 97.6 F 72 14 122/74 98 11/06/16 18:23 11/06/16 18:23 11/06/16 18:23 11/06/16 18:23 11/06/16 18:23 Vital Signs Reviewed: Yes Appearance: Positive: Well-Appearing, No Pain Distress Skin: Positive: Warm, Skin Color Reflects Adequate Perfusion, Dry Head/Face: Positive: Normal Head/Face Inspection Eyes: Positive: Normal ENT: Positive: Normal ENT inspection Neck: Positive: Supple, Nontender Respiratory/Lung Sounds: Positive: Clear to Auscultation, Breath Sounds Present Cardiovascular: Positive: RRR Abdomen Description: Positive: Nontender, Soft Bowel Sounds: Positive: Present Musculoskeletal: Positive: Normal Neurological: Positive: Other - Alcohol on her breath Psychiatric: Positive: Affect/Mood Appropriate Diagnostics - Vital Signs Vital Signs Temp Pulse Resp BP Pulse Ox 11/06/16 18:23 97.6 F 72 14 122/74 98 - Laboratory Lab Results: Lab Results 11/06/16 11/06/16 Range/Units 19:00 19:00 WBC 5.2 (3.5-10.8) 10^3/ul RBC 5.00 (4.0-5.4) 10^6/ul Hgb 16.2 H (12.0-16.0) g/dl Hct 49 H (35-47) % MCV 98 H (80-97) fL MCH 33 H (27-31) pg MCHC 33 (31-36) g/dl RDW 19 H (10.5-15) % Plt Count 166 (150-450) 10^3/ul MPV 9 (7.4-10.4) um3 Neut % (Auto) 48.8 (38-83) % Lymph % (Auto) 35.3 (25-47) % Chaves % (Auto) 9.6 H (1-9) % Eos % (Auto) 5.1 (0-6) % Baso % (Auto) 1.2 (0-2) % Absolute Neuts (auto) 2.6 (1.5-7.7) 10^3/ul Absolute Lymphs (auto) 1.8 (1.0-4.8) 10^3/ul Absolute Monos (auto) 0.5 (0-0.8) 10^3/ul Absolute Eos (auto) 0.3 (0-0.6) 10^3/ul Absolute Basos (auto) 0.1 (0-0.2) 10^3/ul Absolute Nucleated RBC 0.01 10^3/ul Nucleated RBC % 0.2 Sodium 143 (133-145) mmol/L Potassium 3.9 (3.5-5.0) mmol/L Chloride 106 (101-111) mmol/L Carbon Dioxide 25 (22-32) mmol/L Anion Gap 12 H (2-11) mmol/L BUN 14 (6-24) mg/dL Creatinine 0.69 (0.51-0.95) mg/dL Est GFR ( Amer) 108.2 (>60) Est GFR (Non-Af Amer) 84.1 (>60) BUN/Creatinine Ratio 20.3 H (8-20) Glucose 101 H (70-100) mg/dL Calcium 9.4 (8.6-10.3) mg/dL Total Bilirubin 0.40 (0.2-1.0) mg/dL AST 57 H (13-39) U/L ALT 37 (7-52) U/L Alkaline Phosphatase 115 H (34-104) U/L Total Protein 7.3 (6.4-8.9) g/dL Albumin 4.0 (3.2-5.2) g/dL Globulin 3.3 (2-4) g/dL Albumin/Globulin Ratio 1.2 (1-3) TSH 2.63 (0.34-5.60) mcIU/mL Salicylates < 2.50 (<30) mg/dL Acetaminophen < 15 mcg/mL Serum Alcohol 332 H (<10) mg/dL Result Diagrams: 11/06/16 19:00 11/06/16 19:00 Lab Statement: Any lab studies that have been ordered have been reviewed, and results considered in the medical decision making process. Course/Dx - Course Course Of Treatment: Patient signed out at shift change pending sobriety at [facility] Evaluation - Diagnoses Provider Diagnoses: Alcohol intoxication Discharge - Discharge Plan Condition: Stable Disposition: OTHER Discharge Disposition Comment: Pending sobriety and [facility] evaluation Referrals: Josh Jameson MD [Primary Care Provider] - The documentation as recorded by the Ben cardenas Erika accurately reflects the service I personally performed and the decisions made by me, Christian Limon MD.
[2016-11-07] MEDS ORDERED: hydrOXYzine HCL TAB* 50 MG PO ONE (08:47)
[2016-11-07 16:09] VITALS: BP 114/98
--- NOTE | 2016-11-19 15:13 | ED ---
Jewel White Aidan, scribed for Christian Limon MD on 11/07/16 at 1538 . Progress - Progress Note Progress Note: The patient will be diagnosed with alcohol intoxication and discharged home in stable condition. - Consult/PCP Time Called: 03:45 Course/Dx - Course Course Of Treatment: Patient signed out at shift change pending sobriety at [facility] Evaluation - Diagnoses Provider Diagnoses: Alcohol intoxication The documentation as recorded by the Jewel cardenas Aidan accurately reflects the service I personally performed and the decisions made by Braxton ramos Richard L, MD.
== END 2016-11-07 16:06 ==
LOC: ED 18:19
DX: F10.129 Alcohol abuse with intoxication, unspecified (principal); I10 Essential (primary) hypertension
CPT/HCPCS: 36415; 80053; 80320; 80329; 84443; 85025; 96372; 96374; 99285; A9270-GY; G0480; J1200; J1630; J2060

== ENCOUNTER 2016-11-22 10:53 | Emergency (ER) | payer MEDICARE ==
[2016-11-22 11:43] LABS: Hematocrit 41 % (35-47); Hemoglobin 13.8 g/dl (12.0-16.0); Mean Corpuscular HGB Conc 34 g/dl (31-36); Mean Corpuscular Hemoglobin 33 pg (27-31); Mean Corpuscular Volume 99 fL (80-97); Mean Platelet Volume 8 um3 (7.4-10.4); Red Blood Count 4.12 10^6/ul (4.0-5.4); Red Cell Distribution Width 18 % (10.5-15); White Blood Count 4.8 10^3/ul (3.5-10.8)
[2016-11-22 12:02] LABS: Anion Gap 10 mmol/L (2-11); BUN/Creatinine Ratio 24.5 (8-20); Blood Urea Nitrogen 13 mg/dL (6-24); CO2 Carbon Dioxide 23 mmol/L (22-32); Chloride 110 mmol/L (101-111); Glucose 106 mg/dL (70-100); Potassium 3.3 mmol/L (3.5-5.0); Sodium 143 mmol/L (133-145)
[2016-11-22 12:03] LABS: ALT 29 U/L (7-52); AST 55 U/L (13-39); Albumin 3.6 g/dL (3.2-5.2); Alkaline Phosphatase 110 U/L (34-104); Calcium 8.5 mg/dL (8.6-10.3); EGFR African American 146.7 (>60); Globulin 2.9 g/dL (2-4); Total Protein 6.5 g/dL (6.4-8.9)
--- NOTE | 2016-11-22 12:21 | RAD ---
Indication: LEFT eye bruising and swelling. Fall several days ago. Comparison: June 17, 2016 Technique: Noncontrast CT vertex of skull through foramen magnum. Report: Mild prominence of the cerebral sulci and moderate prominence of the cerebellar fissures reflecting atrophy. Negative for winston matter white matter obscuration, intra or extra-axial hemorrhage, or mass effect. Unremarkable partially visualized orbital contents. Negative for fracture of the calvarium or skull base. Negative for scalp hematoma. Clear visualized paranasal sinuses and mastoid air spaces. IMPRESSION: 1. No traumatic brain injury evident. 2. Mild involutional change.
[2016-11-22 12:23] LABS: Acetaminophen < 15 mcg/mL; Alcohol 303 mg/dL (<10); Salicylate < 2.50 mg/dL (<30)
--- NOTE | 2016-11-22 12:24 | RAD ---
HISTORY: Left eye bruising and swelling, trauma COMPARISONS: None TECHNIQUE: Multiple contiguous axial CT scans were obtained of the face without intravenous contrast, with coronal and sagittal multiplanar reformations. FINDINGS: BONES: There is no displaced fracture or dislocation. The orbital rim is intact. The zygomatic arch is intact. The pterygoid plates are intact. ORBITS: The globes are round. The optic nerves are symmetric. The extraocular musculature is normal. There is no post septal or intraconal inflammatory change. There is no retrobulbar hematoma. PARANASAL SINUSES: The paranasal sinuses are clear. Intima slightly deviated to the right BRAIN AND SOFT TISSUE: Unremarkable. OTHER: None. IMPRESSION: NO FACIAL FRACTURE
[2016-11-22 12:31] LABS: TSH (Thyroid Stimulating Horm) 2.09 mcIU/mL (0.34-5.60)
[2016-11-22 15:06] LABS: Urine Bacteria Absent (Absent); Urine Bilirubin Negative (Negative); Urine Glucose Negative (Negative); Urine Nitrite Negative (Negative)
[2016-11-22 15:18] LABS: Benzodiazepine Urine Screen Presumptive Positive (None Detect)
[2016-11-22] MEDS ORDERED: LORazepam TAB(*) 1 MG PO ONE (17:20)
--- NOTE | 2016-11-22 21:31 | ED ---
I, Marques Edmondson, scribed for Hector Vela MD on 11/22/16 at 1650 . Progress - Progress Note Progress Note: Signout pt from Dr. Sandhu. 71yo female is BIBA for making suicidal comments, but pt denies SI in room. Pending lab results for medical clearance to be mentally evaluated. NO CRITICAL CARE TIME. I SPOKE WITH THE PATIENT, SHE DENIES SI. SHE STATES SHE LOVES HER DOGS AND WISHES TO GO HOME TO THEM TO TAKE CARE OF THEM. DISCUSSED WITH DR CASTRO. DISCHARGE HOME STABLE. Re-Evaluation - Re-Evaluation First Eval Re-Evaluation Time: 20:50 Change: Improved Comment: Discussed lab results with the pt. Course/Dx - Course Course Of Treatment: Medical Cleared for Mental Health Evaluation at 1615. Discussed with Dr. Castro (Psych) at 2124. NO CRITICAL CARE TIME. [facility]ICHARGE HOME STABLE. - Diagnoses Provider Diagnoses: Alcohol intoxication, Head injury The documentation as recorded by the scribeDelvis Benjamin accurately reflects the service I personally performed and the decisions made by me, Hector Vela MD.
[2016-11-22 21:58] VITALS: BP 149/88
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
== END 2016-11-22 22:19 | disposition home or self-care (01) ==
LOC: ED 10:53
DX: F10.129 Alcohol abuse with intoxication, unspecified (principal); Y90.8 Blood alcohol level of 240 mg/100 ml or more; S09.90XA Unspecified injury of head, initial encounter; X58.XXXA Exposure to other specified factors, initial encounter; Y93.9 Activity, unspecified; Y92.9 Unspecified place or not applicable
CPT/HCPCS: 36415; 70450; 70486; 80053; 80307; 80320; 80329; 81003; 81015; 84443; 85025; 87086; 99285; A9270-GY; G0480

== ENCOUNTER 2016-12-02 20:43 | Emergency (ER) | payer MEDICARE ==
--- NOTE | 2016-12-02 22:10 | ED ---
Delvis White Benjamin, scribed for Ministerio Acevedo MD on 12/02/16 at 2134 . Psychiatric Complaint - HPI Summary HPI Summary: 71yo female who is intoxicated made suicidal comments. Unable to get full hx from the pt since she is intoxicated. LEVEL 5 CAVEAT. Pt drinks ETOH daily. - History Of Current Complaint Chief Complaint: EDMentalHealth Time Seen by Provider: 12/02/16 21:12 Hx Obtained From: EMS, Medical Records Hx From Patient Unobtainable Due To: Other - ETOH Hx Last Menstrual Period: unknown ?: No Onset/Duration: Sudden Onset, Lasting Hours, Still Present Timing: Constant Severity Initially: Mild Severity Currently: Mild Character: Depressed Associated Signs And Symptoms: Positive: Negative Has Suicidal: Reports: Thoughts Has Homicidal: Denies: Thoughts, With A Plan - Allergies/Home Medications Allergies/Adverse Reactions: Allergies Allergy/AdvReac Type Severity Reaction Status Date / Time No Known Allergies Allergy Verified 09/05/16 10:30 PMH/Surg Hx/FS Hx/Imm Hx Endocrine/Hematology History: Denies: Hx Anticoagulant Therapy, Hx Diabetes, Hx Thyroid Disease Cardiovascular History: Reports: Hx Hypertension Denies: Hx Pacemaker/ICD Respiratory History: Denies: Hx Asthma, Hx Chronic Obstructive Pulmonary Disease (COPD) GI History: Reports: Hx Gastroesophageal Reflux Disease, Other GI Disorders - History of errosive esophagitis Denies: Hx Gastrointestinal Bleed History: Denies: Hx Renal Disease Sensory History: Reports: Hx Contacts or Glasses Denies: Hx Hearing Aid Opthamlomology History: Reports: Hx Contacts or Glasses Neurological History: Denies: Hx Dementia, Hx Seizures Psychiatric History: Reports: Hx Depression, Hx Substance Abuse Denies: Hx Anxiety, Hx Eating Disorder, Hx of Violent Episodes Against Others - Immunization History Date of Tetanus Vaccine: unknown Date of Influenza Vaccine: UTD Infectious Disease History: No Infectious Disease History: Denies: Hx Hepatitis, Hx Human Immunodeficiency Virus (HIV), Traveled Outside the [place] in Last 30 Days - Family History Known Family History: Positive: None, Cardiac Disease, Hypertension, Other - Alcoholism Negative: Diabetes - Social History Occupation: Retired Lives: With Family Alcohol Use: Daily Alcohol Amount: 1/2 bottle of vodka/day Hx Substance Use: No Substance Use Type: Reports: None Hx Tobacco Use: No Smoking Status (MU): Never Smoked Tobacco Review of Systems - ROS Summary Review of Systems Summary: LEVEL 5 CAVEAT. All Other Systems Reviewed And Are Negative: No Physical Exam Triage Information Reviewed: Yes Vital Signs On Initial Exam: Initial Vitals Temp Pulse Resp BP Pulse Ox 98 F 81 16 120/62 93 12/02/16 21:10 12/02/16 21:10 12/02/16 21:10 12/02/16 21:10 12/02/16 21:10 Vital Signs Reviewed: Yes Appearance: Positive: Well-Appearing, No Pain Distress - aob Skin: Positive: Warm Head/Face: Positive: Normal Head/Face Inspection ENT: Positive: Hearing grossly normal Neck: Positive: Supple Respiratory/Lung Sounds: Positive: Breath Sounds Present Cardiovascular: Positive: RRR Abdomen Description: Positive: Nontender, Soft Musculoskeletal: Positive: Strength/ROM Intact - [place] Coma Scale Coma Scale Total: 15 Diagnostics - Vital Signs Vital Signs Temp Pulse Resp BP Pulse Ox 12/02/16 21:10 98 F 81 16 120/62 93 - Laboratory Result Diagrams: 12/02/16 22:18 12/02/16 22:51 Lab Statement: Any lab studies that have been ordered have been reviewed, and results considered in the medical decision making process. Course/Dx - Differential Dx/Clinical Impression Provider Diagnosis: Alcohol intoxication, Alcohol abuse Discharge - Discharge Plan Condition: Good Disposition: HOME Referrals: Josh Jameson MD [Primary Care Provider] - The documentation as recorded by the Delvis cardenas Benjamin accurately reflects the service I personally performed and the decisions made by , Ministerio Acevedo MD.
[2016-12-02 22:34] LABS: Hematocrit 46 % (35-47); Hemoglobin 15.1 g/dl (12.0-16.0); Mean Corpuscular HGB Conc 33 g/dl (31-36); Mean Corpuscular Hemoglobin 33 pg (27-31); Mean Corpuscular Volume 101 fL (80-97); Mean Platelet Volume 8 um3 (7.4-10.4); Red Blood Count 4.58 10^6/ul (4.0-5.4); Red Cell Distribution Width 18 % (10.5-15); White Blood Count 4.9 10^3/ul (3.5-10.8)
[2016-12-02 22:48] LABS: ALT 46 U/L (7-52); Albumin 3.9 g/dL (3.2-5.2); Alkaline Phosphatase 106 U/L (34-104); BUN/Creatinine Ratio 18.6 (8-20); Blood Urea Nitrogen 11 mg/dL (6-24); CO2 Carbon Dioxide 22 mmol/L (22-32); Calcium 8.9 mg/dL (8.6-10.3); Chloride 102 mmol/L (101-111); EGFR African American 129.6 (>60); EGFR Non-African American 100.8 (>60); Globulin 3.3 g/dL (2-4); Glucose 99 mg/dL (70-100); Sodium 138 mmol/L (133-145); Total Protein 7.2 g/dL (6.4-8.9)
[2016-12-02 22:49] LABS: Acetaminophen < 15 mcg/mL; Alcohol 393 mg/dL (<10); Salicylate < 2.50 mg/dL (<30)
[2016-12-02 22:50] LABS: Anion Gap 14 mmol/L (2-11)
[2016-12-02 22:59] LABS: TSH (Thyroid Stimulating Horm) 2.18 mcIU/mL (0.34-5.60)
[2016-12-03 00:03] LABS: Urine Bacteria Absent (Absent); Urine Bilirubin Negative (Negative); Urine Glucose Negative (Negative); Urine Nitrite Negative (Negative)
[2016-12-03 00:11] LABS: Benzodiazepine Urine Screen None Detected (None Detect)
[2016-12-03] MEDS ORDERED: LORazepam TAB(*) 1 MG PO ONE ×2 (00:39→10:33)
[2016-12-03] MEDS ORDERED: diPHENhydraMINE IV* 50 MG/ML 1 ml VIAL (BENADRYL) IM ONE (01:43)
[2016-12-03] MEDS ORDERED: LORazepam INJ* 2 MG/ML 1 ML VIAL IM ONE (01:43)
[2016-12-03] MEDS ORDERED: Haloperidol INJ IV/IM* 5 MG/ML AMP IM ONE (01:43)
[2016-12-03] MEDS ORDERED: amLODIPine TAB* 5 MG PO ONE (10:33)
[2016-12-03] MEDS ORDERED: Metoprolol Tartrate TAB* 25 MG PO ONE (10:34)
[2016-12-03 12:37] VITALS: BP 128/88
--- NOTE | 2016-12-03 18:27 | ED ---
Lena White Rebecca, scribed for Feliz Blanco MD on 12/03/16 at 0843 . Progress - Progress Note Progress Note: Pt was signed out from Dr. Acevedo. Went in to evaluate patient and she is comfortably sleeping. She is in no acute distress. After the M[facility], Dr. Ayala from psychiatry has cleared the patient to be discharged to home. She was D/C with Dx of EtOH intoxication and EtOH abuse. Course/Dx - Course Course Of Treatment: Patient is A+O X 3. SHe is hemodynamically stable and she is ambulationg with a good steady walk. - Diagnoses Provider Diagnoses: Alcohol intoxication, Alcohol abuse The documentation as recorded by the scribLena avila Rebecca accurately reflects the service I personally performed and the decisions made by , Feliz Blanco MD.
== END 2016-12-03 12:37 | disposition home or self-care (01) ==
LOC: ED 20:43
DX: F10.129 Alcohol abuse with intoxication, unspecified (principal); F32.9 Major depressive disorder, single episode, unspecified
CPT/HCPCS: 36415; 80053; 80307; 80320; 80329; 81003; 81015; 84443; 85025; 87086; 96374; 96375; 99285; A9270-GY; G0480; J1200; J1630; J2060

== ENCOUNTER 2016-12-20 23:48 | Emergency (ER) | payer MEDICARE ==
[2016-12-21 00:45] LABS: Hematocrit 44 % (35-47); Hemoglobin 14.7 g/dl (12.0-16.0); Mean Corpuscular HGB Conc 34 g/dl (31-36); Mean Corpuscular Hemoglobin 34 pg (27-31); Mean Corpuscular Volume 100 fL (80-97); Mean Platelet Volume 10 um3 (7.4-10.4); Red Blood Count 4.35 10^6/ul (4.0-5.4); Red Cell Distribution Width 15 % (10.5-15); White Blood Count 7.6 10^3/ul (3.5-10.8)
[2016-12-21 00:54] LABS: Add Diff/Slide Review? Slide Review Added; Comments Flag Yes
[2016-12-21 01:23] LABS: Anion Gap 19 mmol/L (2-11); BUN/Creatinine Ratio 19.1 (8-20); Blood Urea Nitrogen 18 mg/dL (6-24); CO2 Carbon Dioxide 20 mmol/L (22-32); Calcium 10.2 mg/dL (8.6-10.3); Chloride 91 mmol/L (101-111); EGFR African American 75.7 (>60); EGFR Non-African American 58.9 (>60); Glucose 112 mg/dL (70-100); Potassium 3.6 mmol/L (3.5-5.0); Sodium 130 mmol/L (133-145)
[2016-12-21 01:24] LABS: Alcohol < 10 mg/dL (<10)
--- NOTE | 2016-12-21 01:45 | ED ---
I, Hugh,Brooke, scribed for Ministerio Acevedo MD on 12/21/16 at 0025 . Complex/Multi-Sys Presentation - HPI Summary HPI Summary: This 71 y/o female presents to ED for general weakness sinece a week ago. Pt states that she hasn't eaten anything for 12 days due to decreased appetite. She denies any other complaints. Pt is reported to have consumed EtOH vodka earlier today. PMHx includes HTN, depression, and EtOH abuse. FHx is positive for EtOH dependence. - History Of Current Complaint Chief Complaint: EDGeneral Time Seen by Provider: 12/21/16 00:15 Hx Obtained From: Patient, Medical Records Onset/Duration: Gradual Onset, Still Present Timing: Constant Associated Signs And Symptoms: Positive: Weakness - general - Allergies/Home Medications Allergies/Adverse Reactions: Allergies Allergy/AdvReac Type Severity Reaction Status Date / Time No Known Allergies Allergy Verified 09/05/16 10:30 PMH/Surg Hx/FS Hx/Imm Hx Endocrine/Hematology History: Denies: Hx Anticoagulant Therapy, Hx Diabetes, Hx Thyroid Disease Cardiovascular History: Reports: Hx Hypertension Denies: Hx Pacemaker/ICD Respiratory History: Denies: Hx Asthma, Hx Chronic Obstructive Pulmonary Disease (COPD) GI History: Reports: Hx Gastroesophageal Reflux Disease, Other GI Disorders - History of errosive esophagitis Denies: Hx Gastrointestinal Bleed History: Denies: Hx Renal Disease Sensory History: Reports: Hx Contacts or Glasses Denies: Hx Hearing Aid Opthamlomology History: Reports: Hx Contacts or Glasses Neurological History: Denies: Hx Dementia, Hx Seizures Psychiatric History: Reports: Hx Depression, Hx Substance Abuse Denies: Hx Anxiety, Hx Eating Disorder, Hx of Violent Episodes Against Others - Immunization History Date of Tetanus Vaccine: unknown Date of Influenza Vaccine: UTD Infectious Disease History: No Infectious Disease History: Denies: Hx Hepatitis, Hx Human Immunodeficiency Virus (HIV), Traveled Outside the US in Last 30 Days - Family History Known Family History: Positive: Cardiac Disease, Hypertension, Other - Alcoholism Negative: Diabetes - Social History Alcohol Use: Daily Alcohol Amount: 1/2 bottle of vodka/day Hx Substance Use: No Substance Use Type: Reports: None Hx Tobacco Use: No Smoking Status (MU): Never Smoked Tobacco Review of Systems Positive: Fatigue. Negative: Fever Positive: Weakness - general weakness All Other Systems Reviewed And Are Negative: Yes Physical Exam Triage Information Reviewed: Yes Vital Signs On Initial Exam: Initial Vitals Temp Pulse Resp BP Pulse Ox 97.2 F 96 16 141/73 93 12/20/16 23:52 12/20/16 23:52 12/20/16 23:52 12/20/16 23:52 12/20/16 23:52 Vital Signs Reviewed: Yes Appearance: Positive: Well-Appearing, No Pain Distress Skin: Positive: Warm Head/Face: Positive: Normal Head/Face Inspection Eyes: Positive: GRISEL ENT: Positive: Hearing grossly normal Neck: Positive: Supple Respiratory/Lung Sounds: Positive: Clear to Auscultation, Breath Sounds Present Cardiovascular: Positive: RRR Abdomen Description: Positive: Nontender, Soft Bowel Sounds: Positive: Present Musculoskeletal: Positive: Strength/ROM Intact Neurological: Positive: Sensory/Motor Intact, Alert, Oriented to Person Place, Time, Normal Gait Diagnostics - Vital Signs Vital Signs Temp Pulse Resp BP Pulse Ox 12/20/16 23:52 97.2 F 96 16 141/73 93 - Laboratory Lab Results: Lab Results 12/21/16 12/21/16 Range/Units 00:35 00:35 WBC 7.6 (3.5-10.8) 10^3/ul RBC 4.35 (4.0-5.4) 10^6/ul Hgb 14.7 (12.0-16.0) g/dl Hct 44 (35-47) % MCV 100 H (80-97) fL MCH 34 H (27-31) pg MCHC 34 (31-36) g/dl RDW 15 (10.5-15) % Plt Count 128 L (150-450) 10^3/ul MPV 10 (7.4-10.4) um3 Neut % (Auto) 74.1 (38-83) % Lymph % (Auto) 10.0 L (25-47) % [place] % (Auto) 14.3 H (1-9) % Eos % (Auto) 0.9 (0-6) % Baso % (Auto) 0.7 (0-2) % Absolute Neuts (auto) 5.6 (1.5-7.7) 10^3/ul Absolute Lymphs (auto) 0.8 L (1.0-4.8) 10^3/ul Absolute Monos (auto) 1.1 H (0-0.8) 10^3/ul Absolute Eos (auto) 0.1 (0-0.6) 10^3/ul Absolute Basos (auto) 0.1 (0-0.2) 10^3/ul Absolute Nucleated RBC 0.01 10^3/ul Nucleated RBC % 0.2 Sodium 130 L (133-145) mmol/L Potassium 3.6 (3.5-5.0) mmol/L Chloride 91 L (101-111) mmol/L Carbon Dioxide 20 L (22-32) mmol/L Anion Gap 19 H (2-11) mmol/L BUN 18 (6-24) mg/dL Creatinine 0.94 (0.51-0.95) mg/dL Est GFR ( Amer) 75.7 (>60) Est GFR (Non-Af Amer) 58.9 (>60) BUN/Creatinine Ratio 19.1 (8-20) Glucose 112 H (70-100) mg/dL Calcium 10.2 (8.6-10.3) mg/dL Serum Alcohol < 10 (<10) mg/dL Result Diagrams: 12/21/16 00:35 12/21/16 00:35 Lab Statement: Any lab studies that have been ordered have been reviewed, and results considered in the medical decision making process. Re-Evaluation - Re-Evaluation First Eval Re-Evaluation Time: 01:51 Comment: in room to update pt on plan of care involving discharge and outpatient f/u with primary care provider. Complex Multi-Symp Course/Dx Assessment/Plan: This 71 y/o female presents to ED for gradually worsening weakness since a week ago. Pt reports that she has not eaten anything for 12 days due to loss of appetite, although she has consumed vodka earlier today. PMHx does include EtOH abuse, depression, and HTN. Blood work is wnl. Pt is discharged home with outpatient f/u with primary care provider. - Diagnoses Provider Diagnoses: Anorexia Discharge - Discharge Plan Condition: Stable Disposition: HOME Patient Education Materials: Anorexia Nervosa (ED) Referrals: Josh Jameson MD [Primary Care Provider] - 2 Days The documentation as recorded by the Hugh cardenas Soohyun accurately reflects the service I personally performed and the decisions made by me, Ministerio Acevedo MD.
[2016-12-21 01:58] VITALS: BP 145/74
== END 2016-12-21 01:57 | disposition home or self-care (01) ==
LOC: ED 23:48
DX: F50.89 Other specified eating disorder (principal); R53.83 Other fatigue; I10 Essential (primary) hypertension; K21.9 Gastro-esophageal reflux disease without esophagitis; F10.10 Alcohol abuse, uncomplicated; F32.9 Major depressive disorder, single episode, unspecified
CPT/HCPCS: 36415; 80048; 80320; 85025; 99283; G0480